=== PATIENT | female | born 1960 | race Caucasian/White ===

== ENCOUNTER 2019-05-31 22:33 | Emergency (ER) | payer BC, SELFPAY ==
[2019-05-31 22:37] VITALS: BP 139/109; PULSE 82; RESP 14; TEMP 36.6; O2SAT 99
--- NOTE | 2019-05-31 22:50 | ED.EYEPROB ---
HPI - Eye Problem General Chief complaint: Eye Problems Stated complaint: torn cornea Time Seen by Provider: 05/31/19 22:39 Source: patient and family Mode of arrival: ambulatory Limitations: no limitations History of Present Illness HPI Narrative: Patient is a 59-year-old female who presents for evaluation of right eye irritation. Patient states she was cleaning in her basement this evening, there was a lot of dust in the air, she felt some irritation in her right eye and rubbed her eye with immediate pain. She reported some swelling and feeling as if she tore part of her eye. She denies any bleeding. No redness. No white discharge. There is minimal tearing in the right eye and mild pain. Patient does not wear contact lenses. She is not up-to-date on her tetanus. Patient reports blurry vision without her corrective lenses. Otherwise with her lenses, no visual impairment. No current foreign body sensation. Related Data Allergies Allergy/AdvReac Type Severity Reaction Status Date / Time No Known Allergies Allergy Verified 05/31/19 22:47 Review of Systems Review of Systems: Narrative: CONSTITUTIONAL: Denies fever EYES: No current blurry vision, minimal right eye pain, tearing, no discharge ENT: Denies rhinorrhea, congestion, sore throat, or otalgia. PMFSH Past Medical History Medical History (Updated 05/31/19 @ 23:14 by Jeannine Ruiz MD) No pertinent past medical history Surgical History Surgical History (Updated 05/31/19 @ 23:14 by Jeannine Ruiz MD) Hx of shoulder surgery Family History Family History Father Hypertension Malignant neoplasm of prostate Family history of type 2 diabetes mellitus Mother Family history of Alzheimer's disease Family history of malignant neoplasm of cervix Patient's mother is in good health Family history of dementia Social History Social History Smoking status: Former smoker Alcohol intake: current Exam Narrative: Exam Narrative: GENERAL: Awake, alert, conversant HEAD: Normocephalic, atraumatic. EYES: 2+ PERRLA and EOMI. mild right conjunctival erythema. Chemosis present. No subconjunctival hemorrhage. No purulent discharge. No eye lid edema. ENT: Nares clear, no rhinorrhea or epistaxis. Mucous membranes moist. NECK: Supple. CHEST: No respiratory distress, breathing even and non labored HEART: Regular rate, sinus rhythm ABDOMEN:Non distended, non tender EXTREMITIES: Normal range of motion. No edema. SKIN: Warm, dry, no rash. NEURO:No focal deficits. Alert and oriented x3 Course Course Emergency Course: Patient presented for evaluation of right eye irritation. At the time of assessment, vital signs are stable and ABCs are intact. Eye exam is notable for chemosis, fluorescein stain shows no Freddy sign, patient does have a corneal abrasion. We will update the patient's tetanus. She will be given erythromycin eye ointment and ophthalmology follow-up. No severe visual impairment with corrective lenses at this time. No sign of cellulitis. No sign of foreign body. Patient was then discharged home. Vital Signs Vital signs: Vital Signs Temperature 36.6 C 05/31/19 22:37 Pulse Rate 82 05/31/19 22:37 Respiratory Rate 14 05/31/19 22:37 Blood Pressure 139/109 H 05/31/19 22:37 Pulse Oximetry 99 05/31/19 22:37 Temperature 36.6 C 05/31/19 22:37 Pulse Rate 82 05/31/19 22:37 Respiratory Rate 14 05/31/19 22:37 Blood Pressure 139/109 H 05/31/19 22:37 Pulse Oximetry 99 05/31/19 22:37 Discharge Plan Discharge Clinical Impression: Corneal abrasion Qualifiers: Encounter type: initial encounter Laterality: right Qualified Code(s): S05.01XA - Injury of conjunctiva and corneal abrasion without foreign body, right eye, initial encounter Chemosis Qualifiers: Laterality: right Qualified Code(s): H11.421 - Conjunc
[2019-05-31] MEDS: TETANUS,DIPHTHERIA,AC PERTUSSIS ADULT (0.5 ML) BOOSTRIX IM (23:19)
== END 2019-05-31 23:25 | disposition home or self-care (01) ==
PROVIDERS: Emergency Provider Emergency Medicine; PCP Family Medicine
DX: S05.01XA Injury of conjunctiva and corneal abrasion without foreign body, right eye, initial encounter (principal); H11.421 Conjunctival edema, right eye; Z87.891 Personal history of nicotine dependence; Z23 Encounter for immunization; X58.XXXA Exposure to other specified factors, initial encounter
CPT/HCPCS: 90471; 90715; 99283; A9270

== ENCOUNTER 2019-07-05 07:30 | Outpatient (CLI) | payer BC, SELFPAY ==
--- NOTE | ~2019-07-05 | MM_ITS ---
EXAMINATION: MM screening [facility] BI w [place] HISTORY: Screening mammogram TECHNIQUE: Craniocaudal and mediolateral oblique 3-D tomosynthesis images were obtained and synthetic 2-D images were generated. CAD analysis was submitted and interpreted. COMPARISON: 06/12/2018, 05/20/2017, 03/20/2016 bilateral digital screening mammogram examinations BREAST PARENCHYMAL COMPOSITION: There are scattered areas of fibroglandular density. FINDINGS: There is no evidence of suspicious mass, calcification, or architectural distortion to sugg est malignancy in either breast. There has been no suspicious interval change. IMPRESSION: 1. No mammographic evidence of malignancy. 2. Recommend routine screening mammography in one year. BI-RADS Category 1: Negative Reviewed, dictated and finalized at location A.
--- NOTE | ~2019-07-05 | DEXA_ITS ---
Bone Density Report Name: Cyndy Sagastume Age: 59 Sex: Female Ethnicity: White Date of : 1960 Indication: postmenopausal; Referring Provider: Singh, Linn Study: Bone densitometry was performed. Exam Date: July 05, 2019 Accession number: [id number] Bone Density: Region BMD T-score Z-score Classification AP Spine (L1-L4) 1.060 0.1 1.4 Normal Femoral Neck (Left) 0.824 -0.2 0.9 Normal Total Hip (Left) 1.077 1.1 1.9 Normal Total Hip Bilateral Avg 1.084 1.2 2.0 Normal Femoral Neck (Right) 0.832 -0.2 1.0 Normal Total Hip (Right) 1.090 1.2 2.0 Normal World Health Organization criteria for BMD impression classify patients as: Normal (T-score at or above -1.0), Osteopenia (T-score between -1.0 and -2.5), or Osteoporosis (T-score at or below -2.5). 10-year Fracture Risk: FRAX not reported because: All T-scores for Spine Total, Hip Total, Femoral Neck at or above -1.0 Clinical Information Provided by Patient: Patient maximum height was 65 Menopause Age: 55 No regular weight bearing exercise Drinks caffeinated beverages Onset of menses at age 16 Number of children 3 Impression: The patient has normal bone mass. Discussion: BONE DENSITY IS ABOVE THE MINIMUM DESIRABLE LEVEL AT ALL SKELETAL SITES TESTED. This patient?s bone mineral density is above the minimum desirable level (T-score -1.0 or better) at all sites measured. The patient should follow a healthful lifestyle (good nutrition with adequate calcium and vitamin D, and appropriate weight-bearing exercise). Follow-Up: Consider repeating this study in 5 years or sooner if there is some new clinical indication. Reported by: JENI on 07/05/2019 8:09:00 AM. Reviewed, dictated and finalized at location A. [facility]
== END 2019-07-05 07:31 | disposition home or self-care (01) ==
PROVIDERS: PCP Family Medicine; Visit Provider Nurse Practitioner
DX: Z12.31 Encounter for screening mammogram for malignant neoplasm of breast (principal); Z13.820 Encounter for screening for osteoporosis; Z78.0 Asymptomatic menopausal state
CPT/HCPCS: 77063; 77067; 77080

== ENCOUNTER 2020-02-26 09:34 | Outpatient (CLI) | payer BC, SELFPAY ==
--- NOTE | 2020-02-26 10:14 | EST_ITS ---
Patient Info Name: Cyndy Sagastume Age: 60 years : 1960 Gender: Female Ht: 65 in Wt: 200 lbs BSA: 2.07 m2 Exam Date: 02/26/2020 10:20 AM Exam Location: [facility] Stress Patient Status: Outpatient Admit Date: 02/26/2020 Staff Ordering Physician: Laura Huffman Attending Provider: Laura Huffman Exercise Technologist: Melita Arrieta RDCS Exercise Physician: Sumit Muñoz DO Exam Type: CA stress test treadmill Study Info Indications I10 - Essential (primary) hypertension R07.89 - Other chest pain A treadmill exercise stress test was performed. Summary 1. 1. Negative Shaun exercise stress test for ischemic ST changes by ECG criteria. 2. 2. Mildly reduced functional capacity, achieving 7 METs of workload. 3. 3. Baseline hypertension with hypertensive response to exercise. 4. 4. Appropriate HR response to exercise. 5. 5. Appropriate HR recovery at 1 minute post exercise. 6. 6. No imaging with stress testing. 7. 7. Patient informed of the above results. Protocol: Shaun Stress ECG Details Stage: REST Duration (min): 7 min : 44 sec Speed (mph): 0.0 Grade (%): 0 HR (bpm): 72 SBP (mmHg): 143 DBP (mmHg): 94 METS: --- Stage: REST Duration (min): 10 min : 42 sec Speed (mph): 0.0 Grade (%): 0 HR (bpm): 72 SBP (mmHg): 143 DBP (mmHg): 94 METS: --- Stage: STAGE 1 Duration (min): 1 min : 0 sec Speed (mph): 1.7 Grade (%): 10 HR (bpm): 99 SBP (mmHg): 143 DBP (mmHg): 94 METS: --- Stage: STAGE 1 Duration (min): 2 min : 0 sec Speed (mph): 1.7 Grade (%): 10 HR (bpm): 110 SBP (mmHg): 143 DBP (mmHg): 94 METS: --- Stage: STAGE 1 Duration (min): 3 min : 0 sec Speed (mph): 1.7 Grade (%): 10 HR (bpm): 109 SBP (mmHg): 192 DBP (mmHg): 90 METS: --- Stage: STAGE 2 Duration (min): 1 min : 0 sec Speed (mph): 2.5 Grade (%): 12 HR (bpm): 122 SBP (mmHg): 192 DBP (mmHg): 90 METS: --- Stage: STAGE 2 Duration (min): 2 min : 0 sec Speed (mph): 2.5 Grade (%): 12 HR (bpm): 138 SBP (mmHg): 210 DBP (mmHg): 99 METS: --- Stage: STAGE 1 Duration (min): 3 min : 0 sec Speed (mph): 1.7 Grade (%): 10 HR (bpm): 109 SBP (mmHg): 192 DBP (mmHg): 90 METS: --- Stage: STAGE 2 Duration (min): 3 min : 0 sec Speed (mph): 2.5 Grade (%): 12 HR (bpm): 142 SBP (mmHg): 210 DBP (mmHg): 99 METS: --- Stage: RECOVERY Duration (min): 1 min : 0 sec Speed (mph): 0.0 Grade (%): 0 HR (bpm): 123 SBP (mmHg): 236 DBP (mmHg): 97 METS: --- Stage: RECOVERY Duration (min): 1 min : 59 sec Speed (mph): 0.0 Grade (%): 0 HR (bpm): 103 SBP (mmHg): 236 DBP (mmHg): 97 METS: --- Stage: RECOVERY Duration (min): 3 min : 0 sec Speed (mph): 0.0 Grade (%): 0 HR (bpm): 95 SBP (mmHg): 190 DBP (mmHg): 90 MET
== END 2020-02-26 09:35 | disposition home or self-care (01) ==
PROVIDERS: PCP Family Medicine; Visit Provider Physician Assistant Medical
DX: I10 Essential (primary) hypertension (principal); R07.89 Other chest pain
CPT/HCPCS: 93017

== ENCOUNTER → 2020-09-27 07:50 | Outpatient (CLI) | payer BC, SELFPAY ==
--- NOTE | ~2020-09-27 | MM_ITS ---
EXAMINATION: MM screening [facility] BI w [place] HISTORY: Screening mammogram TECHNIQUE: Craniocaudal and mediolateral oblique 3-D tomosynthesis images were obtained and synthetic 2-D images were generated. CAD analysis was submitted and interpreted. COMPARISON: 07/05/2019, 06/12/2018, 05/20/2017 BREAST PARENCHYMAL COMPOSITION: There are scattered areas of fibroglandular density. FINDINGS: There is no evidence of suspicious mass, calcification, or architectural distortion to sugg est malignancy in either breast. There has been no suspicious interval change. IMPRESSION: 1. No mammographic evidence of malignancy. 2. Recommend routine screening mammography in one year. BI-RADS Category 1: Negative Reviewed, dictated and finalized at location A.
== END ==
PROVIDERS: Visit Provider Nurse Practitioner
DX: Z12.31 Encounter for screening mammogram for malignant neoplasm of breast (principal)
CPT/HCPCS: 77063; 77067

== ENCOUNTER 2021-02-10 07:48 | Outpatient (CLI) | payer BC, SELFPAY ==
--- NOTE | 2021-02-10 08:55 | ECG_ITS ---
Measurements Intervals [place] Rate: 56 P: 55 UT: 159 QRS: 28 QRSD: 90 T: 29 QT: 406 QTc: 394 Interpretive Statements SINUS BRADYCARDIA CANNOT RULE OUT SEPTAL INFARCT, AGE INDETERMINATE BASELINE ARTIFACT- I, III, AVR, AVL, AVF, V1-V3 ABNORMAL ECG Electronically Signed On 02-11-2021 9:56:41 [employer] SALES REPRESENTATIVE by Sumit Muñoz D.O.
== END 2021-02-10 07:49 | disposition home or self-care (01) ==
LOC: ANHSURGERY 07:53
PROVIDERS: PCP Family Medicine; Visit Provider Surgery Plastic and Reconstructive Surgery
DX: I10 Essential (primary) hypertension (principal); Z01.818 Encounter for other preprocedural examination; R94.31 Abnormal electrocardiogram [ECG] [EKG]
CPT/HCPCS: 93005

== ENCOUNTER 2021-02-17 01:20 | Day surgery (SDC) | payer OTHER, SELFPAY ==
[2021-02-04 16:01] VITALS: BMI 24.3
--- NOTE | 2021-02-04 16:03 | SUR.PREOP ---
Report to the Outpatient Waiting Room, entrance under the green pavilion located off [facility], at time 0630_ on date 02/17/21 . OR Time: __0830 . - You and your visitor will be asked a series of questions to screen for COVID 19 for your protection. - A mask is required within the hospital. - Only one visitor is allowed at this time. Patient visitors will be guided where to wait when not with patient. Preoperative COVID Testing Requirements: No COVID Test needed if: (proof is required; if not received patient will have Rapid Test prior to entry) - Patient has received COVID Vaccine at least 14 days prior to procedure date or - Patient has positive COVID test result within last 90 days of surgery date. COVID Test needed if above criteria is not met If not COVID vaccinated a COVID test must be conducted within 72 hours of surgery and patient is asked to isolate self from time of testing until procedure. You will go to the [facility] for your COVID testing. The [facility] site is located at the corner of [address] [facility]. You will only be called if COVID results are positive and your surgeon may reschedule your elective surgery date. Patients may have clear liquids (water, carbonated beverages, clear teas, apple juice) until 3 hours prior to surgery with a maximum of 20 ounces. - No food from midnight until time of surgery - Infants may have breast milk until 4 hours before surgery, formula 6 hours prior to surgery. - Children will be allowed to drink immediately following surgery. If applicable, please bring a bottle or sippy cup to assist with drinking. Juice, water, soda, and popsicles are readily available. For infants on formula, please bring formula the day of surgery. Pacifiers are allowed. Take the following medications with a SIP of water the morning of surgery: N/A Medications to discontinue per physician _vitamin supplements Date to take last dose__02/14/21 Please no make-up, nail urdu, hairspray, perfume, deodorant, or body powder the day of surgery. No jewelry (including any body piercings) or valuables the day of surgery, leave them at home. Please take a shower or bath the night before, or the morning of, surgery with an antibacterial soap. Wear comfortable, loose fitting clothing. Children are encouraged to wear pajamas. - Jewelry must be removed prior to entering the operating room. Rings and piercings that are not removed may be cut off. - The hospital will not accept responsibility for valuables. - Please leave all valuables, including medications, at home the day of surgery. require urine sample day of surgery If you are going home after surgery, a licensed test car driver must drive you home. - NO public transportation without another adult. - We recommend that an adult stay with you for 24 hours following discharge. - We also recommend that you do not drive, make important decision, drink alcoholic beverages, or take any drugs that were not prescribed by your health care provider for at least 24 hours after your discharge time. For Pediatric surgeries, we recommend two adults accompany the child home (only one inside the building at this time). Follow any additional instructions given to you from your surgeon. Telephone instructions given to _miriam mcclelland and asked if any additional questions and then verbalized understanding. Patient advised to call surgeon office or pre surgery nurse liaison [phone] if any additional questions.
[2021-02-17] VITALS (13 sets, daily range): BP systolic 131–178; BP diastolic 69–85; PULSE 56–73; RESP 12–20; TEMP 36.2–36.4; O2SAT 98–100
--- NOTE | 2021-02-17 06:50 | WPDHPUPDATE1 ---
History and Physical Update Update Date/Time: 02/17/21 06:50 History and Physical has been reviewed, including an updated exam of the patient. There are NO changes in the patient's condition. Risks, benefits, and alternatives have been discussed and questions answered. Patient agrees to proceed with procedure.
[2021-02-17] MEDS: LACTATED RINGERS 1,000 ML 30 ML IV CONT ×3 (07:10→14:00)
[2021-02-17 07:22] LABS: Urine Cotinine NEGATIVE
--- NOTE | 2021-02-17 08:03 | WPDANESEPPF ---
Anes - Initial Pre Proc Eval Procedure: Operation Date: 02/17/21 08:30 Proposed Procedures p Bilateral Breast Mastopexy with Galaflex - Eile Mirza MD Date/Time: 02/17/21 08:03 Surgeon: Elie Mirza MD Pre Op Diagnosis: Bilateral Breast Ptosis Patient Data Age: 61 Gender: F Height: 1.65 m Weight: 67.45 kg Last Vital Signs Temp 36.2 C L 02/17/21 06:42 Pulse 63 02/17/21 06:42 Resp 20 02/17/21 06:42 BP 136/74 02/17/21 06:42 Pulse Ox 100 02/17/21 06:42 Allergies Allergy/AdvReac Type Severity Reaction Status Date / Time No Known Allergies Allergy Verified 02/17/21 06:45 Home Medications Medication Instructions Recorded Confirmed Type lisinopril 20 1 tablet PO DAILY #90 tablet 03/03/20 02/17/21 Rx mg-hydrochlorothiazide 12.5 mg tablet rosuvastatin 20 mg tablet 20 mg PO DAILY #90 tablet 03/03/20 02/17/21 Rx cholecalciferol (vitamin D3) 1 tablet PO .every other day 01/21/21 02/17/21 History glucosamine-chondroitin 250 mg-200 2 tablet PO .qd tablet 01/21/21 02/17/21 History mg tablet ssrkixtwayfg-lzpnhhlj-xcblsu 1 tablet PO .QD 01/21/21 02/17/21 History [Centrum Silver] biotin 5 mg PO DAILY 02/04/21 02/17/21 History docusate sodium 100 mg capsule 100 mg PO DAILY #14 cap 02/11/21 Rx ondansetron HCl 4 mg tablet 4 mg PO Q8H #21 tablet 02/11/21 Rx oxycodone-acetaminophen 5 mg-325 1 tablet PO Q6H PRN #30 tablet 02/13/21 02/13/21 Rx mg tablet Laboratory Tests 02/17/21 06:40 Cotinine Negative Patient hx anesthesia problems: post op nausea/vomiting Family hx anesthesia problems: none Results Review: All pre-operative results and documents have been reviewed as part of the pre-operative evaluation. [facility] Past Medical History Medical History BMI 25.0-25.9,adult BMI 32.0-32.9,adult Hypertension Mixed hyperlipidemia Surgical History Surgical History History of elbow surgery History of mandibular surgery Hx of shoulder surgery Family History Family History Father Hypertension Malignant neoplasm of prostate Family history of type 2 diabetes mellitus Mother Family history of Alzheimer's disease Family history of malignant neoplasm of cervix Patient's mother is in good health Family history of dementia Sibling COPD (chronic obstructive pulmonary disease) Tobacco abuse Social History Social History Smoking status: Unknown if ever smoked Second hand tobacco smoke exposure: Yes Smoking end date: 02/15/88 Additional smoking assessment comments: 1/2 ppd [id number] Alcohol intake: current Substance use: never Substance use type: does not use Living arrangements: with family 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 Informed Consent: The patient's anesthetic plan and its attendant risks and benefits were discussed with the patient/family/POA. Questions were solicited and answers provided to the satisfaction of the patient/family/POA.
[2021-02-17] MEDS: LACTATED RINGERS IRRIG 1,000 ML, LIDOCAINE HCL 1% LOCAL INJ 50 ML, EPINEPHrine HCL INJ ... INFILTRATE (08:32)
[2021-02-17] MEDS: ceFAZolin 2 GM/D5W 50 ML 2 GM/50 ML BAG IVPB (08:32)
[2021-02-17] MEDS: TRANEXAMIC ACID 1,000MG/ISO100 1,000 MG/100 ML BAG 200 MG IVPB (08:35)
--- NOTE | 2021-02-17 10:59 | P.OP_ITS ---
Procedure Note - Detailed Date of Procedure 02/17/21 Pre-op Diagnosis Bilateral Breast Ptosis Post-op Diagnosis same Procedure Performed Bilateral mastopexy with Galaflex Surgeon Elie Mirza MD Anesthesia general Findings Inverted T Superior medial pedicle Galaflex REF# [id number] Lot [id number] Exp 11/13/2022 Description of Procedure Preoperatively the risks, benefits, alternatives were discussed in extensive detail. I want her to be very realistic about the risks involved as well as expectations. Made sure answered all of her questions to her satisfaction. Consent obtained. Patient was marked in the preoperative holding area with her verification. She was taken to the operating room placed supine on the operating room table. Anesthesia provided by anesthesiology and prepped and draped in a standard sterile fashion. I tailor tacked into position to verified my markings. Placed her in a sitting position to verify and marked out the nipple-areolar complex at 38 mm. She was placed supine. I made stab incision in tumesced with a low volume tumescent solution. I de-epithelialized a superior medial pedicle bilateral. I then elevated medial and lateral flaps and created an auto augmentation flap based on the intercostal inferiorly. That was completely de-epithelialized. I then inset that deep to the breast tissue and sutured to the chest wall using 2- 0 PDS. Galaflex was soaked on the back table in antibiotic solution. He was in trimmed as necessary and sutured into place with 2-0 Vicryl along the inferior aspect of bilateral breast. I then tailor tacked into position. I closed along the IMF with 2-0 Stratafix. I closed along the IMF then with 3-0 Stratafix. Vertical was closed with 2-0 PDS and 3-0 Monocryl. Around the areola with 3-0 strata fix. All the incisions were closed using running subcuticular 4-0 Monocryl followed by Steri-Strips. She was woken taken the PACU without difficulty. All instrument sponge counts were correct at the end of the case. Estimated Blood Loss 30 Drains No Packing No Pathology none sent Complications No immediate complications Condition stable Disposition PACU
[2021-02-17] MEDS: fentaNYL CITRATE INJ (*CRX) 100 MCG/2 ML VIAL 25 MCG IV PUSH ×2 (11:26→12:01)
[2021-02-17] MEDS: ONDANSETRON INJ 4 MG/2 ML VIAL IV PUSH (11:54)
[2021-02-17] MEDS: diphenhydrAMINE HCl INJ 50 MG/ML VIAL 25 MG IV PUSH (12:30)
[2021-02-17] MEDS: PROMETHAZINE HCL 25 MG/ML AMPUL 12.5 MG IV PUSH (13:05)
[2021-02-17] MEDS: HALOPERIDOL LACTATE 5 MG/ML VIAL 1 MG IV PUSH (14:12)
[2021-02-17] MEDS: PROCHLORPERAZINE EDISYLATE 10 MG/2 ML VIAL IV PUSH (14:44)
--- NOTE | 2021-02-17 15:46 | SUR.PHASEII ---
NAUSEA GONE SINCE COMPAZINE GIVEN. STATES SHE CAN GO HOME WITH ASSISTANCE FROM HER .
== END 2021-02-17 15:54 | disposition home or self-care (01) ==
PROVIDERS: PCP Family Medicine; Visit Provider Surgery Plastic and Reconstructive Surgery
PROC: (CPT 19316; principal; 2021-02-17 08:30)
DX: Z41.1 Encounter for cosmetic surgery (principal); N64.81 Ptosis of breast; I10 Essential (primary) hypertension; E78.2 Mixed hyperlipidemia; Z87.891 Personal history of nicotine dependence
CPT/HCPCS: 19316; 15777 ×2; 80307; J0171; J0690; J0780; J1100; J1170; J1200; J1580; J1630; J2250; J2405; J2550; J2704; J3010; J7120

== ENCOUNTER → 2021-10-20 12:06 | Outpatient (CLI) | payer BC, SELFPAY ==
--- NOTE | ~2021-10-20 | MM_ITS ---
EXAMINATION: MM screening [facility] BI w [place] HISTORY: Screening mammogram TECHNIQUE: Craniocaudal and mediolateral oblique 3-D tomosynthesis images were obtained and synthetic 2-D images were generated. CAD analysis was submitted and interpreted. COMPARISON: 09/27/2020, 07/05/2019, 06/12/2018 bilateral screening mammogram examinations BREAST PARENCHYMAL COMPOSITION: The breasts are heterogeneously dense, which may obscure small masses . FINDINGS: Interval bilateral reduction in breast size post bilateral reduction mammoplasty on February 17, 2021. There is no evidence of suspicious mass, calcification, or architectural distortion to sugg est malignancy in either breast. There has been no suspicious interval change. IMPRESSION: 1. No mammographic evidence of malignancy. 2. Recommend routine screening mammography in one year. BI-RADS Category 2: Benign finding(s). Reviewed, dictated and finalized at location A.
== END ==
PROVIDERS: PCP Family Medicine; Visit Provider Nurse Practitioner
DX: Z12.31 Encounter for screening mammogram for malignant neoplasm of breast (principal)
CPT/HCPCS: 77063; 77067

== ENCOUNTER 2021-11-23 08:54 | Outpatient (CLI) | payer BC, SELFPAY ==
--- NOTE | 2021-11-23 09:03 | ECG_ITS ---
Measurements Intervals [place] Rate: 54 P: 62 [place]: 166 QRS: 29 QRSD: 88 T: 34 QT: 420 QTc: 401 Interpretive Statements SINUS BRADYCARDIA COMPARED TO ECG 02/10/2021 08:23:14 NO SIGNIFICANT CHANGES Electronically Signed On 11-24-2021 13:02:45 CDT by Lizzie Collier M.D.
== END 2021-11-23 08:55 | disposition home or self-care (01) ==
LOC: ANHLAB 08:56 → ANHCARD 09:01
PROVIDERS: PCP Family Medicine; Visit Provider Physician Assistant Medical
DX: Z01.818 Encounter for other preprocedural examination (principal); R94.31 Abnormal electrocardiogram [ECG] [EKG]
CPT/HCPCS: 93005

== ENCOUNTER → 2022-10-21 07:15 | Outpatient (CLI) | payer BC, SELFPAY ==
--- NOTE | ~2022-10-21 | MM_ITS ---
EXAMINATION: MM screening [facility] BI w [place] HISTORY: Screening mammogram TECHNIQUE: Craniocaudal and mediolateral oblique 3-D tomosynthesis images were obtained and synthetic 2-D images were generated. CAD analysis was submitted and interpreted. COMPARISON: 10/20/2021, 09/27/2020 bilateral screening mammogram examinations BREAST PARENCHYMAL COMPOSITION: There are scattered areas of fibroglandular density. FINDINGS: Stable architectural distortions and diminished size of the breasts since 09/27/2020 consist ent with postsurgical change. There is no evidence of suspicious mass, calcification, or new architec tural distortion to suggest malignancy in either breast. There has been no suspicious interval change . IMPRESSION: 1. No mammographic evidence of malignancy. 2. Recommend routine screening mammography in one year. BI-RADS Category 2: Benign finding(s). Reviewed, dictated and finalized at location A.
== END ==
PROVIDERS: PCP Nurse Practitioner; Visit Provider Nurse Practitioner
DX: Z12.31 Encounter for screening mammogram for malignant neoplasm of breast (principal)
CPT/HCPCS: 77063; 77067

== ENCOUNTER → 2022-12-22 10:44 | Outpatient (CLI) | payer BC, SELFPAY ==
--- NOTE | ~2022-12-22 | XR_ITS ---
EXAMINATION: XR lumbar spine 2-3V DATE: 12/22/2022 10:59 INDICATION: Low back pain, unspecified. TECHNIQUE: 3 views of lumbar spine including standing views were obtained. COMPARISON: None. FINDINGS: There is 9 degrees dextrocurvature of thoracolumbar spine. Vertebral body heights are hawk l. There is moderately decreased disc height at L1-L2 and mildly decreased disc height at L3-L4. Ther e is multilevel mild facet joint osteoarthritis. There is moderate to severe facet joint osteoarthrit is at L5-S1. IMPRESSION: 1. Moderate lumbar spondylosis. Reviewed, dictated and finalized at location E. M [facility]
== END ==
PROVIDERS: PCP Family Medicine; Visit Provider Nurse Practitioner Family
DX: M43.06 Spondylolysis, lumbar region (principal)
CPT/HCPCS: 72100

== ENCOUNTER 2023-02-20 10:14 | Emergency (ER) | payer BC, SELFPAY ==
--- NOTE | ~2023-02-20 | CT_ITS ---
EXAMINATION: CT orbit BI w con DATE: 02/20/2023 13:14 INDICATION: Left eye erythema and drainage TECHNIQUE: Computed tomography (CT) of the orbits was performed 75 cc of Omnipaque 350 intravenous co ntrast. The dose-length product (DLP) was 169.74 mGy-cm. Automated exposure control and iterative rec onstruction technique were employed. COMPARISON: None. FINDINGS: There is periorbital and preseptal cellulitis of the left eye. No intraconal inflammatory c hange is identified. The right globe is normal. There appears to be mild enhancement anteriorly in th e left eye involving the cornea, pupil, or iris. No fluid collection is identified. There is moderate opacification of the right maxillary sinus and minimal opacification of the left maxillary sinus. Th e osseous structures are unremarkable. IMPRESSION: 1. Periorbital and preseptal cellulitis of the left eye without evidence of abscess. Apparent inflamm atory change of the anterior structures of the left eye. Reviewed, dictated and finalized at location [facility] IMPRESSION: 1. Periorbital and preseptal cellulitis of the left eye without evidence of abs cess. Apparent inflammatory change of the anterior structures of the left eye.
[2023-02-20 10:28] VITALS: BP 132/86; PULSE 82; RESP 18; TEMP 37; O2SAT 100
--- NOTE | 2023-02-20 11:06 | ED.EYEPROB ---
HPI - Eye Problem General Chief complaint: Eye Problems <Monie Peoples PA-C - Last Filed: 02/20/23 16:19> Stated complaint: left eye redness and swelling <SEGUNDO Leonard Last Filed: 02/20/23 16:19> Time Seen by Provider: 02/20/23 10:56 <SEGUNDO Leonard Last Filed: 02/20/23 16:19> Source: patient <SEGUNDO Leonard Last Filed: 02/20/23 16:19> Mode of arrival: ambulatory <SEGUNDO Leonard Last Filed: 02/20/23 16:19> Limitations: no limitations <SEGUNDO Leonard Last Filed: 02/20/23 16:19> History of Present Illness HPI Narrative: This is a 63 year old female that presents to the ER for left eye redness and discharge. Ongoing since yesterday. Reports swelling of the eyelids as well. No known injuries. Reports her grandson has had similar symptoms and was diagnosed with pink eye. She wears glasses, no contacts. She was started on erythromycin ointment by her PCP yesterday. Denies vision changes. <Monie Peoples PA-C - Last Filed: 02/20/23 16:19> Related Data Home medications: Home Medications Medication Instructions Recorded Confirmed cholecalciferol (vitamin D3) 1 tablet PO .every other day 01/21/21 12/22/22 glucosamine-chondroitin 250 mg-200 2 tablet PO .qd 01/21/21 12/22/22 mg tablet (Osteo Bi-Flex) bdlxlgmbyvfa-jvcingda-grxsui 1 tablet PO .QD 01/21/21 12/22/22 [Centrum Silver] biotin 5 mg capsule 5 mg PO DAILY 02/04/21 12/22/22 thiamine HCl (vitamin B1) 250 mg 250 mg PO DAILY 12/22/22 12/22/22 tablet (Vitamin B-1) <SEGUNDO Leonard Last Filed: 02/20/23 16:19> Allergies/adverse reactions: Allergies Allergy/AdvReac Type Severity Reaction Status Date / Time No Known Allergies Allergy Verified 02/20/23 10:14 <Monie Peoples PA-C - Last Filed: 02/20/23 16:19> Review of Systems Review of Systems: CONSTITUTIONAL: Denies fever EYES: Reports redness, and discharge. Denies visual changes <Monie Peoples PA-C - Last Filed: 02/20/23 16:19> All systems reviewed & are unremarkable except as noted in HPI and below <Monie Peoples PA-C - Last Filed: 02/20/23 16:19> [facility] Past Medical History Medical History: Medical History BMI 25.0-25.9,adult BMI 32.0-32.9,adult Hypertension Mixed hyperlipidemia <SEGUNDO Leonard Last Filed: 02/20/23 16:19> Surgical History Surgical History: Surgical History History of elbow surgery History of mandibular surgery Hx of shoulder surgery <Monie Peoples PA-C - Last Filed: 02/20/23 16:19> Family History Family History: Family History Father Hypertension Malignant neoplasm of prostate Family history of type 2 diabetes mellitus Mother Family history of Alzheimer's disease Family history of malignant neoplasm of cervix Patient's mother is in good health Family history of dementia Sibling COPD (chronic obstructive pulmonary disease) Tobacco abuse <Monie Peoples PA-C - Last Filed: 02/20/23 16:19> Social History Social History: Social History Smoking status: Never smoker Second hand tobacco smoke exposure: Yes Smoking end date: 02/15/88 Additional smoking assessment comments: 1/2 ppd [id number] Alcohol intake: current Substance use: never Substance use type: does not use Living arrangements: with family Occupation/Education: occupation 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 HEAD: Normocephalic, atraumatic. EYES:
[2023-02-20 11:27] LABS: Basophils Percent Auto 0.4 % (0.2-1.2); Eosinophils Absolute Auto 0.1 K/mm3 (0-0.3); Eosinophils Percent Auto 1.2 % (0-4.4); Hematocrit 42.7 % (37.0-47.0); Hemoglobin 13.4 g/dL (12.0-15.0); Immature Granulocyte Absolute 0.01 K/mm3 (0.00-0.031); Immature Granulocyte Percent A 0.1 % (0-0.5); Lymphocytes Absolute Auto 1.45 K/mm3 (0.9-3.2); Lymphocytes Percent Auto 21.2 % (18.3-44.2); Mean Corpuscular HGB Conc 31.4 g/dl (32-36); Mean Corpuscular Hemoglobin 29.8 pg (26-34); Mean Corpuscular Volume 94.9 fl (80-100); Mean Platelet Volume 11.3 fl (7.4-10.4); Monocytes Absolute Auto 0.7 K/mm3 (0.1-0.6); Monocytes Percent Auto 10.7 % (2.6-8.5); Neutrophils Absolute Auto 4.5 K/mm3 (1.3-6.7); Neutrophils Percent Auto 66.4 % (45.5-73.1); Platelet Count Result 205 k/mm3 (150-375); Red Cell Distribution Width 13.3 % (11.5-14.5); White Blood Count 6.8 K/mm3 (4.5-10.0)
[2023-02-20 11:33] LABS: Anion Gap 10 mmol/L (8-16); Blood Urea Nitrogen 17 mg/dL (7-17); Calcium 9.6 mg/dL (8.4-10.2); Carbon Dioxide 29 mmol/L (22-30); Chloride 103 mmol/L (98-107); Estimated CRCL calculation 100 ml/min; Estimated Glomerular Filt Rate > 60; Glucose 94 mg/dL (65-110); Sodium 142 mmol/L (137-145)
[2023-02-20] MEDS: cefTRIAXone 2 GM/NS 100 ML 2 GM/100 ML BAG IVPB (15:14)
[2023-02-20] MEDS: VANCOMYCIN 2,000 MG/NS 500 ML 2,000 MG/500 ML BAG 250 MG IVPB (15:55)
[2023-02-20] MEDS: diphenhydrAMINE HCl INJ 50 MG/ML VIAL 25 MG IV PUSH (16:32)
[2023-02-20 16:34] VITALS: BP 119/73; PULSE 67; RESP 15; TEMP 36.8; O2SAT 100
== END 2023-02-20 16:35 | disposition short-term general hospital (02) ==
PROVIDERS: Emergency Provider Physician Assistant; PCP Family Medicine
DX: H05.012 Cellulitis of left orbit (principal); I10 Essential (primary) hypertension; E78.5 Hyperlipidemia, unspecified; Z87.891 Personal history of nicotine dependence
CPT/HCPCS: 36415; 70481; 80048; 85025; 87040; 96365; 96367; 96375; 99285; J0696; J1200; J3370; Q9967

== ENCOUNTER → 2023-02-25 12:39 | Outpatient (CLI) | payer BC, SELFPAY ==
--- NOTE | ~2023-02-25 | MR_ITS ---
MRI of the lumbar spine Clinical History: Back pain Technique: Axial T2-weighted images, and sagittal T1-weighted, T2-weighted, and and T2 fat-sat images were acquired. Findings: There is no fracture or subluxation of the lumbar spine. Vertebral bodies maintain normal h eight and alignment. No suspicious bone marrow signal abnormality seen. At L1-L2, there is moderate degenerative disc narrowing. There is no significant disc bulge or hernia tion. There is mild facet arthropathy. No central canal stenosis or neural foraminal narrowing. At L2-L3, there is no disc bulge or herniation. There is minimal facet arthropathy. No central canal stenosis or neural foraminal narrowing. At L3-L4, there is minimal disc bulge. There is mild facet arthropathy. No central canal stenosis or neural foraminal narrowing. At L4-L5, there is minimal disc bulge. There is mild facet arthropathy. No central canal stenosis or neural foraminal narrowing. At L5-S1, there is minimal disc bulge with mild to moderate facet arthropathy. Tiny annular tear pres ent No central canal stenosis. There is mild bilateral neural foraminal narrowing. Paravertebral soft tissues are unremarkable. Impression: Very mild degenerative spondylosis, as above. Reviewed, dictated and finalized at [facility]. [facility] Impression: Very mild degenerative spondylosis, as above.
== END ==
PROVIDERS: PCP Nurse Practitioner Family; Visit Provider Nurse Practitioner Family
DX: M54.50 Low back pain, unspecified (principal); M47.896 Other spondylosis, lumbar region
CPT/HCPCS: 72148

== ENCOUNTER 2023-11-17 09:46 | Outpatient (CLI) | payer BC, SELFPAY ==
--- NOTE | ~2023-11-17 | US_ITS ---
Left upper arm and axillary area ULTRASOUND Ordering provider: Carolina Whitfield APRN History: . R22.32 - Localized swelling, mass and lump, left upper limb . Comparison: None. FINDINGS/impression: Normal echogenicity is noted with no definite abnormality seen. Reviewed, dictated and finalized at location A.
== END 2023-11-17 09:47 | disposition home or self-care (01) ==
LOC: MICIMG 09:47
PROVIDERS: PCP Nurse Practitioner Adult Health; Visit Provider Nurse Practitioner Adult Health
DX: R22.32 Localized swelling, mass and lump, left upper limb (principal)
CPT/HCPCS: 76882

== ENCOUNTER 2024-01-16 00:22 | Day surgery (SDC) | payer BC, SELFPAY ==
[2023-10-11 09:44] VITALS: BMI 27.0
[2023-12-28 11:31] VITALS: BMI 27.0
[2024-01-16 12:55] VITALS: BP 145/84; PULSE 78; RESP 18; TEMP 36.1; O2SAT 100; BMI 27.0
[2024-01-16] MEDS: LACTATED RINGERS 1,000 ML 150 ML IV CONT (13:04)
--- NOTE | 2024-01-16 13:37 | P.PNAN_ITS ---
Anes - Initial Pre Proc Eval Procedure: Operation Date: 01/16/24 14:00 Proposed Procedures p Screening Colonoscopy - Paulino Mcclain MD Date/Time: 01/16/24 13:37 Surgeon: Paulino Mcclain MD Pre Op Diagnosis: Neoplasm screening Patient Data Age: 63 Gender: F Height: 1.68 m Weight: 75.9 kg Last Vital Signs Temp 36.1 C L 01/16/24 12:55 Pulse 78 01/16/24 12:55 Resp 18 01/16/24 12:55 BP 145/84 H 01/16/24 12:55 Pulse Ox 100 01/16/24 12:55 O2 Del Method Room Air 01/16/24 12:55 Allergies Allergy/AdvReac Type Severity Reaction Status Date / Time No Known Allergies Allergy Verified 01/16/24 12:54 Home Medications Medication Instructions Recorded Confirmed Type lisinopril 20 See Rx Instructions .Route 11/14/23 01/16/24 Rx mg-hydrochlorothiazide 12.5 mg .COMPLEX #90 tabs tablet rosuvastatin 20 mg tablet 20 mg PO DAILY #90 tabs 11/14/23 01/16/24 Rx Brain Health 1 tab-cap PO DAILY 12/28/23 01/16/24 History Diet Work Cider 1 cap PO DAILY 12/28/23 01/16/24 History cranberry fruit concentrate 250 mg 250 mg PO DAILY 12/28/23 01/16/24 History chewable tablet (Azo Cranberry) magnesium 200 mg tablet 200 mg PO DAILY 12/28/23 01/16/24 History Patient hx anesthesia problems: other (very slow to awaken) Family hx anesthesia problems: none Results Review: All pre-operative results and documents have been reviewed as part of the pre- operative evaluation. [facility] Past Medical History Medical History BMI 25.0-25.9,adult BMI 32.0-32.9,adult Hypertension Mass of left axilla Mixed hyperlipidemia Screening for breast cancer Surgical History Surgical History History of elbow surgery History of mandibular surgery Hx of shoulder surgery Family History Family History Father Hypertension Malignant neoplasm of prostate Family history of type 2 diabetes mellitus Mother Family history of Alzheimer's disease Family history of malignant neoplasm of cervix Patient's mother is in good health Family history of dementia Sibling COPD (chronic obstructive pulmonary disease) Tobacco abuse Social History Social History Smoking packs per day: 1 Smoking cigarettes per day: 20.0 Years smoked: 5 Smoking pack-years: 5.00 Smoking status: Former smoker Tobacco type: cigarettes Second hand tobacco smoke exposure: Yes Smoking end date: 02/15/88 Additional smoking assessment comments: 1/2 ppd [id number] Alcohol intake: never Substance use: never Substance use type: does not use Living arrangements: with family Occupation/Education: occupation 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 Informed Consent: The patient's anesthetic plan and its attendant risks and benefits were discussed with the patient/family/POA. Questions were solicited and answers provided to the satisfaction of the patient/family/POA.
--- NOTE | 2024-01-16 13:46 | P.HP_ITS ---
History of Present Illness History of Present Illness Consent: Risks, benefits, and alternatives have been discussed and questions answered. Patient agrees to proceed with procedure. Chief complaint: Neoplasm screening Narrative: Cyndy Sagastume is a 63 year old female here for screening colonoscopy, last one 10 years ago Review of Systems Review of Systems: All systems reviewed & are unremarkable except as noted in HPI and below PMFSH Past Medical History Medical History (Updated 01/16/24 @ 13:46 by Paulino Mcclain MD) BMI 25.0-25.9,adult BMI 32.0-32.9,adult Colon cancer screening Hypertension Mass of left axilla Mixed hyperlipidemia Screening for breast cancer Surgical History Surgical History History of elbow surgery History of mandibular surgery Hx of shoulder surgery Family History Family History Father Hypertension Malignant neoplasm of prostate Family history of type 2 diabetes mellitus Mother Family history of Alzheimer's disease Family history of malignant neoplasm of cervix Patient's mother is in good health Family history of dementia Sibling COPD (chronic obstructive pulmonary disease) Tobacco abuse Social History Social History Smoking packs per day: 1 Smoking cigarettes per day: 20.0 Years smoked: 5 Smoking pack-years: 5.00 Smoking status: Former smoker Tobacco type: cigarettes Second hand tobacco smoke exposure: Yes Smoking end date: 02/15/88 Additional smoking assessment comments: 1/2 ppd [id number] Alcohol intake: never Substance use: never Substance use type: does not use Living arrangements: with family Occupation/Education: occupation 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 Gender identity (if verbalized by the patient): Female Spiritual care concerns: No Meds Home Medications and Allergies Home Medications Medication Instructions Recorded Confirmed Type lisinopril 20 See Rx Instructions .Route 11/14/23 01/16/24 Rx mg-hydrochlorothiazide 12.5 mg .COMPLEX #90 tabs tablet rosuvastatin 20 mg tablet 20 mg PO DAILY #90 tabs 11/14/23 01/16/24 Rx Brain Health 1 tab-cap PO DAILY 12/28/23 01/16/24 History Diet Work Cider 1 cap PO DAILY 12/28/23 01/16/24 History cranberry fruit concentrate 250 mg 250 mg PO DAILY 12/28/23 01/16/24 History chewable tablet (Azo Cranberry) magnesium 200 mg tablet 200 mg PO DAILY 12/28/23 01/16/24 History Allergies Allergy/AdvReac Type Severity Reaction Status Date / Time No Known Allergies Allergy Verified 01/16/24 12:54 Vital Signs Vital Signs - 24 hr 01/16/24 12:55 Temperature 96.9 F L Pulse Rate 78 Respiratory Rate 18 Blood Pressure 145/84 H Pulse Oximetry 100 Oxygen Delivery Room Air Exam Const: General: comfortable and no acute distress HENMT: Face/Nose/Sinus: Normal nares present Eyes: General: appearance normal, both eyes and all related structures Neck: Neck: no JVD Resp: Auscultation: clear to auscultation bilaterally Cardio: Rate: regular rate Rhythm: regular rhythm GI: Inspection: non-distended GI Palp: Yes Soft to palpation Skin: General skin exam: normal color Neuro: General: gait normal Speech: normal speech Extrem: General: normal to inspection Psych: Mental Status: mental status grossly normal Assessment and Plan Assessment and plan (1) Colon cancer screening: Code(s): Z12.11 - Encounter for screening for malignant neoplasm of colon Status: Acute Assessment and Plan: colonoscopy
[2024-01-16 14:06] VITALS: BP 103/65; PULSE 69; RESP 16; O2SAT 98
[2024-01-16 14:16] VITALS: BP 101/66; PULSE 61; RESP 14; O2SAT 98
[2024-01-16 14:26] VITALS: BP 120/77; PULSE 63; RESP 19; O2SAT 100
== END 2024-01-16 14:34 | disposition home or self-care (01) ==
PROVIDERS: PCP Nurse Practitioner Adult Health; Referring Provider Nurse Practitioner Family; Visit Provider Internal Medicine Gastroenterology
PROC: 0DJD8ZZ Inspection of Lower Intestinal Tract, Via Natural or Artificial Opening Endoscopic (ICD-10-PCS; CPT 45378; principal; 2024-01-16 14:00)
DX: Z12.11 Encounter for screening for malignant neoplasm of colon (principal); K64.8 Other hemorrhoids; E78.2 Mixed hyperlipidemia; I10 Essential (primary) hypertension; Z87.891 Personal history of nicotine dependence
CPT/HCPCS: 45378; J2003; J2704; J7120

== ENCOUNTER 2024-04-03 13:53 | Outpatient (CLI) | payer BC, SELFPAY ==
--- NOTE | ~2024-04-03 | MM_ITS ---
EXAMINATION: MM screening [facility] BI w [place] HISTORY: Screening TECHNIQUE: Craniocaudal and mediolateral oblique 3-D tomosynthesis images were obtained and synthetic 2-D images were generated. CAD analysis was submitted and interpreted. COMPARISON: Comparison to multiple prior studies sequentially, with oldest reviewed study dated 07/2017. BREAST PARENCHYMAL COMPOSITION: Not dense: There are scattered areas of fibroglandular density. FINDINGS: There is distortion of both breasts consistent with prior breast reduction surgery. There i s no evidence of suspicious mass, calcification, or architectural distortion to suggest malignancy in either breast. There has been no suspicious interval change. IMPRESSION: 1. No mammographic evidence of malignancy. 2. Recommend routine screening mammography in one year. BI-RADS Category 1: Negative Reviewed, dictated and finalized at location [facility]. [facility]
== END 2024-04-03 13:54 | disposition home or self-care (01) ==
LOC: MICIMG 13:54
PROVIDERS: PCP Obstetrics & Gynecology Gynecology; Visit Provider Nurse Practitioner Adult Health
DX: Z12.31 Encounter for screening mammogram for malignant neoplasm of breast (principal)
CPT/HCPCS: 77063; 77067

== ENCOUNTER 2024-04-10 11:02 | Outpatient (CLI) | payer BC, SELFPAY ==
--- NOTE | ~2024-04-10 | DEXA_ITS ---
Bone Density Report Name: KAIT GRAYSON Age: 64 Sex: Female Ethnicity: White Date of : 1960 Indication: postmenopausal; screening for osteoporosis; Referring Provider: BELEM, JOSEPH Study: Bone densitometry was performed. Exam Date: April 10, 2024 Accession number: [id number] Bone Density: Region BMD T-score Z-score Classification AP Spine(L1-L4) 1.045 0.0 1.5 Normal Femoral Neck (Left) 0.822 -0.2 1.1 Normal Total Hip (Left) 1.047 0.9 1.9 Normal Femoral Neck (Right) 0.831 -0.2 1.2 Normal Total Hip (Right) 1.013 0.6 1.7 Normal Total Hip Mean 1.030 0.8 1.8 Normal World Health Organization criteria for BMD impression classify patients as: Normal (T-score at or above -1.0), Osteopenia (T-score between -1.0 and -2.5), or Osteoporosis (T-score at or below -2.5). 10-year Fracture Risk: FRAX not reported because: All T-scores for Spine Total, Hip Total, Femoral Neck at or above -1.0 Previous Exams: Region Exam Age BMD T-score BMD Change BMD Change Date g/cm2 vs Baseline vs Previous AP Spine (L1-L4) 04/10/2024 64 1.045 0.0 -0.015 (-1.4%) -0.015 (-1.4%) 07/05/2019 59 1.060 0.1 Total Hip(Left) 04/10/2024 64 1.047 0.9 -0.030 (-2.8%) -0.030 (-2.8%) 07/05/2019 59 1.077 1.1 Total Hip(Right) 04/10/2024 64 1.013 0.6 -0.077 (-7.1%) -0.077 (-7.1%) 07/05/2019 59 1.090 1.2 *Denotes significance at 95% confidence level, LSC for AP Spine = 0.022 g/cm2, LSC for Total Hip = 0.027 g/cm2 # Denotes dissimilar scan types or analysis methods Clinical Information Provided by Patient: Patient maximum height was 65.5 Menopause Age: 55 No regular weight bearing exercise Onset of menses at age 15 Number of children 3 Impression: The patient has normal bone mass. No significant bone loss was observed. Discussion: BONE DENSITY IS ABOVE THE MINIMUM DESIRABLE LEVEL AT ALL SKELETAL SITES TESTED. This patient?s bone mineral density is above the minimum desirable level (T-score -1.0 or better) at all sites measured. The patient should follow a healthful lifestyle (good nutrition with adequate calcium and vitamin D, and appropriate weight-bearing exercise). Follow-Up: Consider repeating this study in 5 years or sooner if there is some new clinical indication. Reported by: RUBY on 04/10/2024 11:38:00 AM. Reviewed, dictated and finalized at location [facility]
--- OUTSIDE RECORDS SUMMARY | 2024-04-10 13:07 | XMS_ITS | Clinical Summary ---
Author Organization [facility] Address [address] [place] [address] Care Team Providers Care Pin Worker Name Role Phone Frandy Hendricks MD Primary Care Provider [phone] Source Comments [facility],non-owned Affiliates and Associated Physician Practices is amultiple site organization consisting of ambulatory clinics and hospital sitesin [place], [place], [place] and [place]. This disclosure is being madepursuant to the Care Everywhere program and may not contain all information available regarding this patient. Last updated 17.[facility] Allergies No known active allergies Medications * Be aware that medications may not be up to date on this document. Alwaysverify current medications with the patient. Medication Sig Dispensed Refills Start Date End Date Status rosuvastatin (Crestor) 20 MG tablet Take 1 (one) tablet by mouth once daily Active lisinopril-hydroCHLOR Othiazide (Prinzide; Zestoretic) 20-12.5 MG tablet Take 1 (one) tablet by mouth once daily Active saline nasal spray ([place]; Baby [place]) 0.65 % nasal sprayIndications:Orbi izzy cellulitis on left,Pain around left eye,Acute conjunctivitis of left eye, unspecified acute conjunctivitis type [place] 1 (one) spray into each nostril every 2 hours as needed for Dry Nose 60 mL 02/22/2023 Active artificial tears ophthalmic solution Instill 1 (one) drop into both eyes 3 times daily as needed 15 mL 02/22/2023 Active Biotin 1 MG 5,000 mcg 09/17/2021 Active Eliquis 2.5 MG tablet Take 1 (one) tablet by mouth 2 times daily FOR 5 DAYS 03/16/2022 Active cefadroxil (Duricef) 500 MG capsule TAKE 1 CAPSULE BY MOUTH TWICE DAILY FOR 14 DAYS 03/16/2022 Active cyclobenzaprine (Flexeril) 10 MG tablet Take 1 (one) tablet by mouth 3 times daily as needed FOR MUSCLE SPASM 02/10/2023 Active diazePAM (Valium) 5 MG tablet TAKE 1 TABLET BY MOUTH EVERY 6 HOURS NEEDED FOR MUSCLE SPASM 03/16/2022 Active diazePAM (Valium) 5 MG tablet 1 (one) tablet 03/16/2022 Active docusate sodium (Colace) 100 MG capsule TAKE 1 CAPSULE BY MOUTH TWICE DAILY NEEDED FOR CONSTIPATION 03/16/2022 Active docusate sodium (Colace) 100 MG capsule 1 (one) capsule 03/16/2022 Active Active Problems Problem Noted Date Diagnosed Date Periorbital cellulitis of left eye 02/21/2023 Primary hypertension 02/21/2023 HLD (hyperlipidemia) 02/21/2023 Acute conjunctivitis of left eye, unspecified acute conjunctivitis type 02/20/2023 Pain around left eye 02/20/2023 Resolved Problems Problem Noted Date Diagnosed Date Resolved Date Orbital cellulitis on left 02/20/2023 0 02/21/2023 Social History Tobacco Use Types Packs/Day Years Used Date Smoking Tobacco: Never Assessed Sex and Gender Information Value Date Recorded Sex Assigned at Not on file Gender Identity Not on file Sexual Orientation Not on file Last Filed Vital Signs Vital Sign Reading Time Taken Comments Blood Pressure 109/74 02/22/2023 4:31 AM RN BURN Pulse 61 02/22/2023 11:49 AM RN BURN Temperature 36.7 C (98 F) 02/22/2023 11:49 AM RN BURN Respiratory Rate 18 02/22/2023 11:49 AM RN BURN Oxygen Saturation 99% 02/22/2023 11:49 AM RN BURN Inhaled Oxygen Concentration - - Weight 76.7 kg (169 lb) 02/20/2023 9:10 PM RN BURN Height 165.1 cm (5' 5 ) 02/20/2023 9:10 PM RN BURN Body Mass Index 28.12 02/20/2023 9:10 PM RN BURN Plan of Treatment Health Maintenance Due Date Last Done Comments COLOGUARD (AGES 45-75) - COL ON CA SCREENING 1962 COLON MONITORING 1962 COLONOSCOPY - COLON CA SCREENING 1962 CT COLONOGRAPHY - COLON CA SCREENING 1962 Colorectal Cancer Screening 1962 FIT - COLON CA SCREENING 1962 FLEX SIG - COLON CA SCREENING 1962 MAMMOGRAM 1962 PAP SMEAR 1962 HIV SCREENING 1977 HEPATITIS C SCREENING 01/18/1980 DTAP/TDAP/TD VACCINES (1 - Tdap) 1981 PNEUMOCOCCAL VACCINE 50+ (1 of 1 - PCV) 01/23/2012 ZOSTER VACCINE (1 of 2) 01/23/2012 COVID-19 VACCINE (3 - 2023-2 5 season) 2023 08/12/2020, 07/22/2020 INFLUENZA VACCINE (#1) 2023 1, 11/14/2018 DEPRESSION SCREENING 02/15/2024 SCREENING FOR DIABETES 02/22/2026 4, 02/21/2023, 02/20/2023 Respiratory Syncytial Virus (RSV) Vaccine Pt: or over 60 yrs (1 - 1-dose 75+ series) 2037 HEPATITIS B VACCINE Aged Out No longe r eligible based on patient's age to complete this topic HIB VACCINE Aged Out No longer eligi ble based on patient's age to complete this topic HPV VACCINE Aged Out No longer eligi ble based on patient's age to complete this topic MENINGOCOCCAL (Group B) VACCINE Aged Out No longer eligible b ased on patient's age to complete this topic MENINGOCOCCAL VACCINE Aged Out No andrade christy eligible based on patient's age to complete this topic PNEUMOCOCCAL VACCINE Aged Out No long er eligible based on patient's age to complete this topic Procedures Procedure Name Priority Date/Time Associated Diagnosis Comments BASIC METABOLIC PANEL (CALCIUM TOTAL) Routine 02/22/2023 1:48 AM RN BURN Orbital cellulitis on left Pain around left eye Acute conjunctivitis of left eye, unspecified acute conjunctivitis type from Last 3 Months or Most Recently Relevant to Health Maintenance Results * (ABNORMAL) BASIC METABOLIC PANEL (CALCIUM TOTAL) (02/22/2023 1:48 AM RN BURN) BUN 15 7 - 26 mg/dL 02/22/2023 2:32 AM [facility] Creatinine 0.58 0.56 - 0.96 mg/dL 02/22/2023 2:32 AM [facility] Sodium 143 136 - 145 mmol/L 02/22/2023 2:32 AM [facility] Potassium 3.9 3.5 - 4.5 mmol/L 02/22/2023 2:32 AM [facility] Chloride 109(H) 98 - 107 mmol/L 02/22/2023 2:32 AM [facility] CO2 24 22 - 29 mmol/L 02/22/2023 2:32 AM [facility] Glucose 96 70 - 115 mg/dL 02/22/2023 2:32 AM [facility] Calcium 8.9 8.4 - 10.2 mg/dL 02/22/2023 2:32 AM [facility] Anion Gap 10 6 - 16 02/22/2023 2:32 AM [facility] BUN/Creatinine Ratio 26(H) 7 - 23 02/22/2023 2:32 AM [facility] Osmolality Calculated 297(H) 275 - 295 mOsm/kg 02/22/2023 2:32 AM [facility] eGFR by CKD-EPI >90 >=90 mL/min/1.7 3 m2 02/22/2023 2:32 AM [facility] Blood BLOOD SPECIMEN / Unknown Lab Venipuncture / Unknown 02/22/2023 1:48 AM RN BURN 02/22/2023 2:03 AM [facility] Dianne King APRN-TABLE TENDER LAB - CHEMISTRY ORDERABLES [facility] [address] [place] [address], [facility] [phone] from Last 3 Months or Most Recently Relevant to Health Maintenance Advance Directives * Full Code (Latest Code Status on File) Date Activated Date Inactivated Comments 02/20/2023 9:52 PM 02/22/2023 4:59 PM Care Teams Pin Worker Relationship Specialty Start Date End Date Frandy Hendricks MD [address] [place] [address] PCP - General Family Medicine 02/21/23
--- OUTSIDE RECORDS SUMMARY | 2024-04-10 13:07 | XMS_ITS | Encounter Summary ---
Author Organization [facility] Address [address] [place] [address] Care Team Providers Care Layup Worker Name Role Phone Frandy Hendricks MD Primary Care Provider [phone] Encounter Details Date Type Department Care Team (Late st Contact Info) Description 02/21/2023 Ophth Exam [facility] - Ophthalmology [address] [place] [id number] Otilio Torres MD [address] [facility] [place] [address] Social History Tobacco Use Types Packs/Day Years Used Date Smoking Tobacco: Never Assessed Sex and Gender Information Value Date Recorded Sex Assigned at Not on file Gender Identity Not on file Sexual Orientation Not on file documented as of this encounter Plan of Treatment Not on file documented as of this encounter Visit Diagnoses Not on filedocumented in this encounter Care Teams Layup Worker Relationship Specialty Start Date End Date Frandy Hendricks MD [address] [place] [phone] PCP - General Family Medicine 02/21/23 documented as of this encounter
--- OUTSIDE RECORDS SUMMARY | 2024-04-10 13:07 | XMS_ITS | Encounter Summary ---
Author Organization [facility] Address [address] [place] [address] Care Team Providers Care Sap Bw Consultant Name Role Phone Frandy Hendricks MD Primary Care Provider [phone] Encounter Details Date Type Department Care Team (Late st Contact Info) Description 03/11/2023 Telephone [facility] - Ophthalmology [address] [place] [phone] Yefri Bobby MD [address] [place] [address] [place] [phone] Social History Tobacco Use Types Packs/Day Years Used Date Smoking Tobacco: Never Assessed Sex and Gender Information Value Date Recorded Sex Assigned at Not on file Gender Identity Not on file Sexual Orientation Not on file documented as of this encounter Miscellaneous Notes * Telephone Encounter - Matthew Beyer - 03/11/2023 2:41 PM CST Patient is calling to reschedule her appt from 03/07. Next available's are showing for [facility] documented in this encounter Plan of Treatment Not on file documented as of this encounter Visit Diagnoses Not on filedocumented in this encounter Care Teams Sap Bw Consultant Relationship Specialty Start Date End Date Frandy Hendricks MD [address] [place] [address] PCP - General Family Medicine 1/8/24 documented as of this encounter
--- OUTSIDE RECORDS SUMMARY | 2024-04-10 13:07 | XMS_ITS | Clinical Summary ---
Author Organization [facility] Administrative Offices Address [address] [place] [address] Care Team Providers Care Doctor Of Chiropractic Name Role Phone Frandy Hendricks MD Primary Care Provider [phone] Allergies No known active allergies Medications multivitamin (DAILY-KIRA) tablet Take 1 Tablet by mouth daily. supp Active naproxen sodium (ALEVE) 220 mg Tablet Take 220 mg by mouth every 4 hours as needed for Pain, Moderate. pain Active calcium as carbonate (TUMS) 500 mg (200 mg elemental) Tablet, Chewable Take 400 mg by mouth. Active meloxicam (MOBIC) 15 mg tablet Take 1 Tablet (15 mg) by mouth daily. 30 Tablet 02/18/2020 9:53 AM SALES SUPPORT ENGINEER 02/18/2020 Active methylPREDNISol one (MEDROL DOSPACK) 4 mg Tablets, Dose Pack Take as directed 21 Tablet 07/07/2020 9:08 AM CDT 07/07/2020 Active Immunizations Immunization Administration Dates Next Due Influenza Seasonal Unspecified Formulation IM Social History Tobacco Use Types Packs/Day Years Used Date Smoking Tobacco: Former Cigarettes Smokeless Tobacco: Never Comments:3-5 cigs/day Alcohol Use Standard Drinks/Week Comments Yes 0 (1 standard drink = 0.6 oz pur e alcohol) Comments No Sex and Gender Information Value Date Recorded Sex Assigned at Not on file Legal Sex Female 9:03 AM CDT Gender Identity Not on file Sexual Orientation Not on file Last Filed Vital Signs Vital Sign Reading Time Taken Comments Blood Pressure 154/83 11/22/2019 8:33 PM CDT Pulse 90 11/22/2019 8:33 PM CDT Temperature 35.8 C (96.5 F) 11/22/2019 8:33 PM CDT Respiratory Rate 16 11/22/2019 8:33 PM CDT Oxygen Saturation 98% 11/22/2019 8:33 PM CDT Inhaled Oxygen Concentration - - Weight 90.8 kg (200 lb 3.2 oz) 11/22/2019 1:25 P M CDT Height 165.1 cm (5' 5 ) 11/22/2019 1:25 PM CDT Body Mass Index 33.32 11/22/2019 1:25 PM CDT Plan of Treatment Health Maintenance Due Date Last Done Comments DTAP/TDAP/TD VACCINES (1 - Tdap) 1981 CERVICAL CANCER SCREENING 01/23/1992 BREAST CANCER SCREENING 2002 COLORECTAL SCREENING 2007 Colorectal Cancer Screening 2007 FIT-DNA Q 3 years 2007 FIT/FOBT Q 1 year 2007 Flex Sig/CT Colonography Q 5 years 2007 ZOSTER VACCINE (1 of 2) 01/23/2012 INFLUENZA VACCINE (#1) 2023 11/14/2018 RSV VACCINE (60+ or ) (1 - 1-dose 75+ series) 2037 PNEUMOCOCCAL VACCINE 0-64 YEARS Aged Out No longer eligible based on patient's age to complete this topic Insurance DR VALDEZ [address] BLUE ACCESS/[place] [address] RX [employer] PL[employer] (INTERNAL) [facility] RX [employer]ANS (INTERNAL) [facility] Advance Directives For more information, please contact: [phone] * Full Code (Latest Code Status on File) Date Activated Date Inactivated Comments 11/22/2019 2:21 PM 11/22/2019 11:01 PM * Full Code Date Activated Date Inactivated Comments 11/22/2019 1:26 PM 11/22/2019 2:21 PM Care Teams Doctor Of Chiropractic Relationship Specialty Start Date End Date Frandy Hendricks MD [address] [place] [address] PCP - General Family Practice 11/13/19
--- OUTSIDE RECORDS SUMMARY | 2024-04-10 13:07 | XMS_ITS | Referral Summary ---
Author Organization [facility] Address [address] [place] [address] Care Team Providers Care Window Decorator Name Role Phone Frandy Hendricks MD Primary Care Provider [phone] Source Comments [facility],non-owned Affiliates and Associated Physician Practices is amultiple site organization consisting of ambulatory clinics and hospital sitesin [place], [place], [place] and [place]. This disclosure is being madepursuant to the Care Everywhere program and may not contain all information available regarding this patient. Last updated 17.[facility] Allergies No known active allergies Medications * [...] mouth once daily Active saline nasal spray ([place]; Baby [place]) 0.65 % nasal sprayIndications:Orbi izzy cellulitis on left,Pain around left eye,Acute conjunctivitis of left eye, unspecified acute conjunctivitis type Byron 1 (one) spray into each nostril every [...] Comments Blood Pressure 109/74 02/22/2023 4:31 AM CROOK OPERATOR Pulse 61 02/22/2023 11:49 AM CROOK OPERATOR Temperature 36.7 C (98 F) 02/22/2023 11:49 AM CROOK OPERATOR Respiratory Rate 18 02/22/2023 11:49 AM CROOK OPERATOR Oxygen Saturation 99% 02/22/2023 11:49 AM CROOK OPERATOR Inhaled Oxygen Concentration - - Weight 76.7 kg (169 lb) 02/20/2023 9:10 PM CROOK OPERATOR Height 165.1 cm (5' 5 ) 02/20/2023 9:10 PM CROOK OPERATOR Body Mass Index 28.12 02/20/2023 9:10 PM CROOK OPERATOR Plan of Treatment Not on file Procedures Procedure Name Priority Date/Time Associated Diagnosis Comments BASIC METABOLIC PANEL (CALCIUM TOTAL) Routine 02/22/2023 1:48 AM CROOK OPERATOR Orbital cellulitis on left Pain around left eye Acute conjunctivitis of left eye, unspecified acute conjunctivitis type from Last 3 Months or Most Recently Relevant to Health Maintenance Results * (ABNORMAL) BASIC METABOLIC PANEL (CALCIUM TOTAL) (02/22/2023 1:48 AM [facility]) BUN 15 7 - 26 mg/dL 02/22/2023 2:32 AM [facility] Creatinine 0.58 0.56 - 0.96 mg/dL 02/22/2023 2:32 AM [facility] Sodium 143 136 - 145 mmol/L 02/22/2023 2:32 AM [facility] Potassium 3.9 3.5 - 4.5 mmol/L 02/22/2023 2:32 AM [facility] Chloride 109(H) 98 - 107 mmol/L 02/22/2023 2:32 AM [facility] CO2 24 22 - 29 mmol/L 02/22/2023 2:32 AM [facility] Glucose 96 70 - 115 mg/dL 02/22/2023 2:32 AM [facility] Calcium 8.9 8.4 - 10.2 mg/dL 02/22/2023 2:32 AM [facility] Anion Gap 10 6 - 16 02/22/2023 2:32 AM [facility] BUN/Creatinine Ratio 26(H) 7 - 23 02/22/2023 2:32 AM [facility] Osmolality Calculated 297(H) 275 - 295 mOsm/kg 02/22/2023 2:32 AM [facility] eGFR by CKD-EPI >90 >=90 mL/min/1.7 3 m2 02/22/2023 2:32 AM [facility] Blood BLOOD SPECIMEN / Unknown Lab Venipuncture / Unknown 02/22/2023 1:48 AM CROOK OPERATOR 02/22/2023 2:03 AM [facility] Dianne King APRN-WOODYARD OPERATOR LAB - CHEMISTRY ORDERABLES [facility] [address] [place] [address], [facility] [phone] from Last 3 Months or Most Recently Relevant to Health Maintenance Advance Directives * Full Code (Latest Code Status on File) Date Activated Date Inactivated Comments 02/20/2023 9:52 PM 02/22/2023 4:59 PM Care Teams Window Decorator Relationship Specialty Start Date End Date Frandy Hendricks MD [address] [place] [address] PCP - General Family Medicine 02/21/23
--- OUTSIDE RECORDS SUMMARY | 2024-04-10 13:07 | XMS_ITS | Encounter Summary ---
Author Organization [facility] Address [address] [facility] [place] [address] Care Team Providers Care Geriatric Physical Therapist Name Role Phone Frandy Hendricks MD Primary Care Provider [phone] Encounter Details Date Type Department Care Team (Late st Contact Info) Description 02/22/2023 Ophth Exam [facility] - Ophthalmology [address] [place] [id number] Otilio Torres MD [address] [facility] [place] [address] Social History Tobacco Use Types Packs/Day Years Used Date Smoking Tobacco: Never Assessed Sex and Gender Information Value Date Recorded Sex Assigned at Not on file Gender Identity Not on file Sexual Orientation Not on file documented as of this encounter Plan of Treatment Not on file documented as of this encounter Visit Diagnoses Not on filedocumented in this encounter Care Teams Geriatric Physical Therapist Relationship Specialty Start Date End Date Frandy Hendricks MD [address] [place] [phone] PCP - General Family Medicine 02/21/23 documented as of this encounter
--- OUTSIDE RECORDS SUMMARY | 2024-04-10 13:07 | XMS_ITS | Encounter Summary ---
Author Organization [facility] Address [address] [facility] [place] [address] Care Team Providers Care Procurement Internship Name Role Phone Unknown, Provider Primary Care Provider Frandy Perez MD Primary Care Provider [phone] Encounter Details Date Type Department Care Team (Late st Contact Info) Description 02/20/2023 Ophth Exam [facility] - Ophthalmology [address] [place] [phone] Malcolm Wynne MD [address] [facility] [place] [phone] Social History Tobacco Use Types Packs/Day Years Used Date Smoking Tobacco: Never Assessed Sex and Gender Information Value Date Recorded Sex Assigned at Not on file Gender Identity Not on file Sexual Orientation Not on file documented as of this encounter Plan of Treatment Not on file documented as of this encounter Visit Diagnoses Not on filedocumented in this encounter Care Teams Procurement Internship Relationship Specialty Start Date End Date Unknown, Provider PCP - General 02/20/23 02/20/23 Frandy Hednricks MD [address] [place] [phone] PCP - General Family Medicine 02/21/23 documented as of this encounter
--- OUTSIDE RECORDS SUMMARY | 2024-04-10 13:07 | XMS_ITS | Clinical Summary ---
Author Organization [facility] Physician Office Building [address] [place] [phone] Care Team Providers Care Presser Hand Name Role Phone Frandy Hendricks MD Primary Care Provider [phone] Allergies No known active allergies Medications lisinopril-hydro CHLOROthiazide (ZESTORETIC) 20-12.5 mg per tablet 02/18/2020 Active rosuvastatin (CRESTOR) 20 mg tablet 03/03/2020 Active ergocalciferol (VITAMIN D) 50,000 unit capsule Take 50,000 Units by mouth 02/18/2020 Active Active Problems Problem Noted Date Diagnosed Date SOB (shortness of breath) on exertion 03/07/2020 Hypertension 03/07/2020 Palpitations 03/07/2020 Hyperlipidemia 03/07/2020 Surgical History Surgery Date Site/Laterality Comments KNEE ARTHROSCOPY W/ LATERAL RELEASE 2016 (x2) BREAST SURGERY 02/14/1997 - 02/13/1998 TUBAL LIGATION 02/14/1994 - 02/13/1995 Medical History Medical History Date Comments Migraines 1996 Hypertension 2016 Family History Medical History Relation Name Comments Alzheimer's disease Father Lucio Dahl Arthritis Father Lucio Dahl Cancer Father Lucio Dahl Diabetes Father Lucio Dahl Hearing loss Father Lucio Dahl Heart disease Father Lucio Dahl Hypertension Father Lucio Dahl Alzheimer's disease Mother Kym Dahl Cancer Mother Kym Dahl Hypertension Mother Kymesteban Dahl COPD Sister Mindy Dahl Kidney disease Sister Mindy Dalh Relation Name Status Comments Father Lucio Dahl Mother Kym Dahl Sister Mindy Dahl Social History Tobacco Use Types Packs/Day Years Used Date Smoking Tobacco: Former Smokeless Tobacco: Never Alcohol Use Standard Drinks/Week Comments Yes 2 (1 standard drink = 0.6 oz pure alcohol) Occasional drink; 1-2 glasses wine per month Personal Safety Answer Date Recorded Getting School Help Needed Not on file 04/29 Comments Unknown Sex and Gender Information Value Date Recorded Sex Assigned at Not on file Legal Sex Female 8:10 AM FOREST LAW AND POLICY PROFESSOR Gender Identity Female 03/05/2020 1:49 PM FOREST LAW AND POLICY PROFESSOR Sexual Orientation Straight 03/05/2020 1: 49 PM FOREST LAW AND POLICY PROFESSOR Obstetrics History Last Filed Vital Signs Vital Sign Reading Time Taken Comments Blood Pressure 131/87 03/17/2020 2:42 PM FOREST LAW AND POLICY PROFESSOR Pulse 69 03/07/2020 10:55 AM FOREST LAW AND POLICY PROFESSOR Temperature 36.5 C (97.7 F) 03/17/2020 2:42 PM FOREST LAW AND POLICY PROFESSOR Respiratory Rate 18 03/07/2020 10:55 AM FOREST LAW AND POLICY PROFESSOR Oxygen Saturation 95% 03/07/2020 10:55 AM FOREST LAW AND POLICY PROFESSOR Inhaled Oxygen Concentration - - Weight 92.5 kg (204 lb) 03/07/2020 10:55 AM FOREST LAW AND POLICY PROFESSOR Height 165.1 cm (5' 5 ) 03/07/2020 10:55 AM FOREST LAW AND POLICY PROFESSOR Body Mass Index 33.95 03/07/2020 10:55 AM FOREST LAW AND POLICY PROFESSOR Plan of Treatment Health Maintenance Due Date Last Done Comments Breast Cancer Screening-Mammogram 1962 Cervical Cancer Screening 1962 Colon Cancer Screening-Colonoscopy 1962 Depression Screening 1962 Hepatitis C Screening 1962 Hepatitis B Screening 01/23/1980 Regular Well Visit/Exam 18-64 01/23/1980 Zoster Vaccine (1 of 2) 01/23/2012 Covid-19 Vaccine (3 - 2023-2 5 season) 2023 08/12/2020, 07/22/2020 Influenza Vaccine (#1) 2023 , 11/14/2018 DTaP/Tdap/Td Vaccine (3 - Td or Tdap) 05/30/2029 05/31/2019, 06/03/2016 Pneumococcal vaccine <65 Aged Out No longer eligible based on patient's age to complete this topic Insurance [facility] CHOICE [facility] Address: [place] [address] Care Teams Presser Hand Relationship Specialty Start Date End Date Frandy Hendricks MD PCP - General Family Medicine 03/07/20
--- OUTSIDE RECORDS SUMMARY | 2024-04-10 13:07 | XMS_ITS | Referral Summary ---
Author Organization [facility] [address] [place] [phone] Care Team Providers Care Dental Biller Name Role Phone Frandy Hendricks MD Primary Care Provider [phone] Allergies No known active allergies Medications lisinopril-hydro CHLOROthiazide (ZESTORETIC) 20-12.5 mg per tablet 02/18/2020 Active rosuvastatin (CRESTOR) 20 mg tablet 03/03/2020 Active ergocalciferol (VITAMIN D) 50,000 unit capsule Take 50,000 Units by mouth 02/18/2020 Active Active Problems Problem Noted Date Diagnosed Date SOB (shortness of breath) on exertion 03/07/2020 Hypertension 03/07/2020 Palpitations 03/07/2020 Hyperlipidemia 03/07/2020 Social History Tobacco Use Types Packs/Day Years [...] on file Legal Sex Female 8:10 AM FLAT OPTICAL ELEMENT MAKER Gender Identity Female 03/05/2020 1:49 PM FLAT OPTICAL ELEMENT MAKER Sexual Orientation Straight 03/05/2020 1: 49 PM FLAT OPTICAL ELEMENT MAKER Last Filed Vital Signs Vital Sign Reading Time Taken Comments Blood Pressure 131/87 03/17/2020 2:42 PM FLAT OPTICAL ELEMENT MAKER Pulse 69 03/07/2020 10:55 AM FLAT OPTICAL ELEMENT MAKER Temperature 36.5 C (97.7 F) 03/17/2020 2:42 PM FLAT OPTICAL ELEMENT MAKER Respiratory Rate 18 03/07/2020 10:55 AM FLAT OPTICAL ELEMENT MAKER Oxygen Saturation 95% 03/07/2020 10:55 AM FLAT OPTICAL ELEMENT MAKER Inhaled Oxygen Concentration - - Weight 92.5 kg (204 lb) 03/07/2020 10:55 AM FLAT OPTICAL ELEMENT MAKER Height 165.1 cm (5' 5 ) 03/07/2020 10:55 AM FLAT OPTICAL ELEMENT MAKER Body Mass Index 33.95 03/07/2020 10:55 AM FLAT OPTICAL ELEMENT MAKER Plan of Treatment Not on file Insurance [facility] CHOICE OOS Care Teams Dental Biller Relationship Specialty Start Date End Date Frandy Hendricks MD PCP - General Family Medicine 03/07/20
--- OUTSIDE RECORDS SUMMARY | 2024-04-10 13:07 | XMS_ITS | Patient Health Summary ---
Author Organization [facility] [employer] Address [address] [place] [address] Care Team Providers Care Residential Property Manager Name Role Phone Frandy Hendricks MD Primary Care Provider [phone] Note from [facility],non-owned Affiliates and Associated Physician Practices is amultiple site organization consisting of ambulatory clinics and hospital sitesin [place], [place], [place] and [place]. This disclosure is being madepursuant to the Care Everywhere program and may not contain all information available regarding this patient. Last updated 17.[facility] Allergies No known active allergies Medications * Be aware that medications may not be up to date on this document. Alwaysverify current medications with the patient. * rosuvastatin (Crestor) 20 MG tablet Take 1 (one) tablet by mouth once daily * lisinopril-hydroCHLOROthiazide (Prinzide; Zestoretic) 20-12.5 MG tablet Take 1 (one) tablet by mouth once daily * saline nasal spray ([place]; Baby [place]) 0.65 % nasal spray(Started 02/22/2023) [place] 1 (one) spray into each nostril every 2 hours as needed for Dry Nose * artificial tears ophthalmic solution(Started 02/22/2023) Instill 1 (one) drop into both eyes 3 times daily as needed * Biotin 1 MG(Started 09/17/2021) 5,000 mcg * Eliquis 2.5 MG tablet(Started 03/16/2022) Take 1 (one) tablet by mouth 2 times daily FOR 5 DAYS * cefadroxil (Duricef) 500 MG capsule(Started 03/16/2022) TAKE 1 CAPSULE BY MOUTH TWICE DAILY FOR 14 DAYS * cyclobenzaprine (Flexeril) 10 MG tablet(Started 02/10/2023) Take 1 (one) tablet by mouth 3 times daily as needed FOR MUSCLE SPASM * diazePAM (Valium) 5 MG tablet(Started 03/16/2022) TAKE 1 TABLET BY MOUTH EVERY 6 HOURS NEEDED FOR MUSCLE SPASM * diazePAM (Valium) 5 MG tablet(Started 03/16/2022) 1 (one) tablet * docusate sodium (Colace) 100 MG capsule(Started 03/16/2022) TAKE 1 CAPSULE BY MOUTH TWICE DAILY NEEDED FOR CONSTIPATION * docusate sodium (Colace) 100 MG capsule(Started 03/16/2022) 1 (one) capsule Active Problems Problem Noted Date Diagnosed Date [...] Comments Blood Pressure 109/74 02/22/2023 4:31 AM EVENT REPRESENTATIVE Pulse 61 02/22/2023 11:49 AM EVENT REPRESENTATIVE Temperature 36.7 C (98 F) 02/22/2023 11:49 AM EVENT REPRESENTATIVE Respiratory Rate 18 02/22/2023 11:49 AM EVENT REPRESENTATIVE Oxygen Saturation 99% 02/22/2023 11:49 AM EVENT REPRESENTATIVE Inhaled Oxygen Concentration - - Weight 76.7 kg (169 lb) 02/20/2023 9:10 PM EVENT REPRESENTATIVE Height 165.1 cm (5' 5 ) 02/20/2023 9:10 PM EVENT REPRESENTATIVE Body Mass Index 28.12 02/20/2023 9:10 PM EVENT REPRESENTATIVE Procedures * CBC W/O DIFFERENTIAL(Performed 02/22/2023) Performed for Orbital cellulitis on left, Pain around left eye, Acute conjunctivitis of left eye, unspecified acute conjunctivitis type * BASIC METABOLIC PANEL (CALCIUM TOTAL)(Performed 02/22/2023) Performed for Orbital cellulitis on left, Pain around left eye, Acute conjunctivitis of left eye, unspecified acute conjunctivitis type * PHOSPHORUS BLOOD(Performed 02/21/2023) Performed for Orbital cellulitis on left, Pain around left eye, Acute conjunctivitis of left eye, unspecified acute conjunctivitis type * MAGNESIUM BLOOD(Performed 02/21/2023) Performed for Orbital cellulitis on left, Pain around left eye, Acute conjunctivitis of left eye, unspecified acute conjunctivitis type * BASIC METABOLIC PANEL (CALCIUM TOTAL)(Performed 02/21/2023) Performed for Orbital cellulitis on left, Pain around left eye, Acute conjunctivitis of left eye, unspecified acute conjunctivitis type * PROCALCITONIN LEVEL(Performed 02/21/2023) Performed for Orbital cellulitis on left, Pain around left eye, Acute conjunctivitis of left eye, unspecified acute conjunctivitis type * CBC W/O DIFFERENTIAL(Performed 02/21/2023) Performed for Orbital cellulitis on left, Pain around left eye, Acute conjunctivitis of left eye, unspecified acute conjunctivitis type * COMPREHENSIVE METABOLIC PANEL(Performed 02/20/2023) * CBC W AUTO DIFFERENTIAL(Performed 02/20/2023) * CT FACIAL BONES WWO CONTRAST(Performed 02/20/2023) Performed for Orbital cellulitis on left * DERMATOPATHOLOGY(Performed 05/23/2017) Results * CBC W/O DIFFERENTIAL (02/22/2023 1:48 AM EVENT REPRESENTATIVE) Only the most recent of2 resultswithin the time period is included. WBC 4.5 4.0 - 10.7 x10E9/L 02/22/2023 2:13 AM [facility] RBC Count 4.07 3.90 - 5.20 x10E12/L 02/22/2023 2:13 AM [facility] Hemoglobin 12.2 11.9 - 15.8 g/dL 02/22/2023 2:13 AM [facility] Hematocrit 38.2 34.8 - 46.1 % 02/22/2023 2:13 AM [facility] MCV 93.9 80.0 - 98.0 fL 02/22/2023 2:13 AM [facility] MCH 30.0 26.7 - 33.6 pg 02/22/2023 2:13 AM [facility] MCHC 31.9 31.7 - 36.3 g/dL 02/22/2023 2:13 AM [facility] RDW-CV 13.3 11.3 - 14.8 % 02/22/2023 2:13 AM [facility] Platelet Count 182 150 - 420 x10E9/L 02/22/2023 2:13 AM [facility] MPV 11.4 7.8 - 11.4 fL 02/22/2023 2:13 AM [facility] Blood BLOOD SPECIMEN / Unknown Lab Venipuncture / Unknown 02/22/2023 1:48 AM EVENT REPRESENTATIVE 02/22/2023 2:03 AM EVENT REPRESENTATIVE Dianne King LOCKSTITCH LINING MAKER-RECREATIONAL COUNSELOR LAB - HEMATOLOGY ORDERABLES [address] [address] [phone] * (ABNORMAL) BASIC METABOLIC PANEL (CALCIUM TOTAL) (02/22/2023 1:48 AM EVENT REPRESENTATIVE) Only the most recent of2 resultswithin the time period is included. BUN 15 7 - 26 mg/dL 02/22/2023 2:32 AM [facility] Creatinine 0.58 0.56 - 0.96 mg/dL 02/22/2023 2:32 AM [facility] Sodium 143 136 - 145 mmol/L 02/22/2023 2:32 AM [facility] Potassium 3.9 3.5 - 4.5 mmol/L 02/22/2023 2:32 AM [facility] Chloride 109(H) 98 - 107 mmol/L 02/22/2023 2:32 AM [facility] CO2 24 22 - 29 mmol/L 02/22/2023 2:32 AM [facility] Glucose 96 70 - 115 mg/dL 02/22/2023 2:32 AM [facility] Calcium 8.9 8.4 - 10.2 mg/dL 02/22/2023 2:32 AM [facility] Anion Gap 10 6 - 16 02/22/2023 2:32 AM [facility] BUN/Creatinine Ratio 26(H) 7 - 23 02/22/2023 2:32 AM [facility] Osmolality Calculated 297(H) 275 - 295 mOsm/kg 02/22/2023 2:32 AM [facility] eGFR by CKD-EPI >90 >=90 mL/min/1.7 3 m2 02/22/2023 2:32 AM [facility] Blood BLOOD SPECIMEN / Unknown Lab Venipuncture / Unknown 02/22/2023 1:48 AM EVENT REPRESENTATIVE 02/22/2023 2:03 AM EVENT REPRESENTATIVE Dianne SIMONS LAB - CHEMISTRY ORDERABLES [address] [address], [facility] [phone] * PHOSPHORUS BLOOD (02/21/2023 12:37 AM EVENT REPRESENTATIVE) Phosphorus 4.2 2.9 - 5.1 mg/dL 02/21/2023 2:05 AM [facility] Blood BLOOD SPECIMEN / Unknown Lab Venipuncture / Unknown 02/21/2023 12:37 AM EVENT REPRESENTATIVE 02/21/2023 1:37 AM EVENT REPRESENTATIVE Dianne SIMONS LAB - CHEMISTRY ORDERABLES Performing Organization Address City/[facility]/ZIP Co de Phone Number [address] [address], [place] [phone] * MAGNESIUM BLOOD (02/21/2023 12:37 AM EVENT REPRESENTATIVE) Magnesium 2.1 1.6 - 2.6 mg/dL 02/21/2023 2:05 AM [facility] Blood BLOOD SPECIMEN / Unknown Lab Venipuncture / Unknown 02/21/2023 12:37 AM EVENT REPRESENTATIVE 02/21/2023 1:37 AM EVENT REPRESENTATIVE [facility] LAB - CHEMISTRY ORDERABLES [facility] [address] [place] [address], [facility] [phone] * PROCALCITONIN LEVEL (02/21/2023 12:36 AM EVENT REPRESENTATIVE) [facility] PROCALCITONIN <0.02 <=0.10 ng/mL 02/21/2023 2:11 AM EVENT REPRESENTATIVE [facility] Blood BLOOD SPECIMEN / Unknown Lab Venipuncture / Unknown 02/21/2023 12:36 AM EVENT REPRESENTATIVE 02/21/2023 1:32 AM EVENT REPRESENTATIVE Narrative [facility] - 02/21/2023 2:11 AM EVENT REPRESENTATIVE The change in procalcitonin (PCT) concentration over time provides support in decision making on antibiotic discontinuation for suspected or confirmed septic patients. Follow-up samples should be tested once every 1-2 days based upon physician discretion taking into account the patient s evolution and progress. Consider discontinuation of antibiotic therapy if the PCT current is <= 0.5 ng/mL or if the delta PCT is > 80%. Duration of antibiotics should not be determined solely on PCT; established guidelines for the indication should be followed. PCT peak: Highest observed PCT concentration PCT current: Most recent PCT concentration Calculate delta PCT using the following equation: Delta PCT = PCT Peak PCT current X 100% PCT Peak The Change in Procalcitonin Calculator is available at [email or web address] If clinical picture has not improved and PCT remains high, reevaluate and consider treatment failure or other causes. Dianne King APRN-RECREATIONAL COUNSELOR LAB - CHEMISTRY ORDERABLES [place] [address] [place] [address], [facility] [phone] * (ABNORMAL) CBC W AUTO DIFFERENTIAL (02/20/2023 7:44 PM EVENT REPRESENTATIVE) [facility] WBC 6.8 4.0 - 10.7 x10E9/L 02/20/2023 8:03 PM EVENT REPRESENTATIVE [facility] RBC Count 4.39 3.90 - 5.20 x10E12/L 02/20/2023 8:03 PM [facility] Hemoglobin 13.4 11.9 - 15.8 g/dL 02/20/2023 8:03 PM [facility] Hematocrit 40.4 34.8 - 46.1 % 02/20/2023 8:03 PM [facility] MCV 92.0 80.0 - 98.0 fL 02/20/2023 8:03 PM [facility] MCH 30.5 26.7 - 33.6 pg 02/20/2023 8:03 PM [facility] MCHC 33.2 31.7 - 36.3 g/dL 02/20/2023 8:03 PM [facility] RDW-CV 13.2 11.3 - 14.8 % 02/20/2023 8:03 PM [facility] Platelet Count 173 150 - 420 x10E9/L 02/20/2023 8:03 PM [facility] MPV 11.7(H) 7.8 - 11.4 fL 02/20/2023 8:03 PM [facility] Neutrophil % 63.1 41.0 - 74.0 % 02/20/2023 8:03 PM [facility] Lymphocyte % 26.2 17.0 - 47.0 % 02/20/2023 8:03 PM [facility] Monocyte % 9.2 3.0 - 11.0 % 02/20/2023 8:03 PM [facility] Eosinophil % 1.3 0.0 - 7.0 % 02/20/2023 8:03 PM [facility] Basophil % 0.1 0.0 - 1.6 % 02/20/2023 8:03 PM [facility] Immature Granulocytes % 0.1 0.0 - 1.0 % 02/20/2023 8:03 PM [facility] Neutrophil Absolute 4.26 1.60 - 7.50 x10E9/L 02/20/2023 8:03 PM [facility] Lymphocyte Absolute 1.77 1.00 - 4.40 x10E9/L 02/20/2023 8:03 PM [facility] Monocyte Absolute 0.62 0.15 - 1.00 x10E9/L 02/20/2023 8:03 PM [facility] Eosinophil Absolute 0.09 0.00 - 0.60 x10E9/L 02/20/2023 8:03 PM [facility] Basophil Absolute 0.01 0.00 - 0.13 x10E9/L 02/20/2023 8:03 PM [facility] Blood BLOOD SPECIMEN / Unknown Venipuncture / Unknown 02/20/2023 7:44 PM EVENT REPRESENTATIVE 02/20/2023 7:56 PM EVENT REPRESENTATIVE Paulino Aguilar MD LAB - HEMATOLOGY ORD ERABLES [facility] [address] [place] [address], [facility] [phone] * (ABNORMAL) COMPREHENSIVE METABOLIC PANEL (02/20/2023 7:44 PM EVENT REPRESENTATIVE) BUN 17 7 - 26 mg/dL 02/20/2023 8:21 PM [facility] Creatinine 0.59 0.56 - 0.96 mg/dL 02/20/2023 8:21 PM [facility] Sodium 141 136 - 145 mmol/L 02/20/2023 8:21 PM [facility] Potassium 3.5 3.5 - 4.5 mmol/L 02/20/2023 8:21 PM [facility] Chloride 109(H) 98 - 107 mmol/L 02/20/2023 8:21 PM [facility] CO2 24 22 - 29 mmol/L 02/20/2023 8:21 PM [facility] Glucose 94 70 - 115 mg/dL 02/20/2023 8:21 PM [facility] Calcium 9.0 8.4 - 10.2 mg/dL 02/20/2023 8:21 PM [facility] Protein Total 7.3 6.0 - 8.3 g/dL 02/20/2023 8:21 PM [facility] Albumin 3.5 3.4 - 5.0 g/dL 02/20/2023 8:21 PM [facility] Bilirubin Total 0.2 0.2 - 1.2 mg/dL 02/20/2023 8:21 PM [facility] Alkaline Phosphatase 92 40 - 150 U/L 02/20/2023 8:21 PM [facility] ALT 18 5 - 55 U/L 02/20/2023 8:21 PM [facility] AST 16 5 - 34 U/L 02/20/2023 8:21 PM [facility] Anion Gap 8 6 - 16 02/20/2023 8:21 PM [facility] BUN/Creatinine Ratio 29(H) 7 - 23 02/20/2023 8:21 PM [facility] Osmolality Calculated 293 275 - 295 mOsm/kg 02/20/2023 8:21 PM [facility] Albumin/Globulin Ratio 0.9(L) 1.1 - 2.3 02/20/2023 8:21 PM [facility] eGFR by CKD-EPI >90 >=90 mL/min/1.7 3 m2 02/20/2023 8:21 PM [facility] Blood BLOOD SPECIMEN / Unknown Venipuncture / Unknown 02/20/2023 7:44 PM EVENT REPRESENTATIVE 02/20/2023 7:56 PM EVENT REPRESENTATIVE Paulino Aguilar MD LAB - CHEMISTRY [place] [facility] Organization Address City/State/ZIP Co de Phone Number [facility] [address] [place] [address], [facility] [phone] * CT FACIAL BONES WWO CONTRAST (02/20/2023 7:20 PM EVENT REPRESENTATIVE) Anatomical Region Laterality Modality Head Computed Tomogra phy 02/20/2023 7:29 PM EVENT REPRESENTATIVE Impressions 02/20/2023 7:52 PM EVENT REPRESENTATIVE IMPRESSION: 1.Findings compatible with left periorbital cellulitis. 2.Findings compatible with left scleritis, keratitis, and iritis. 3.No peripherally enhancing fluid collections to suggest darrell abscess formation. 4.No post septal involvement to suggest orbital cellulitis. 5.Paranasal sinus disease as outlined. > Interpreting Provider: Farrukh So MD on 02/20/2023 7:52 PM Narrative 02/20/2023 7:52 PM EVENT REPRESENTATIVE PROCEDURE: CT FACIAL BONES WWO CONTRAST, DATE/TIME OF EXAM: 02/20/2023 7:21 PM, LOCATION [facility] INDICATION: H05.012: Orbital cellulitis on left ADDITIONAL CLINICAL INFORMATION: Ordering Provider Reason For Exam: orbital cellulitis of left eye? Technologist Note: Does the patient have a history of renal insufficiency?->No Additional: 63 year oldfemaleas transfer from OSH for left red and pain eye. Symptoms of4 days hx of worseningitchy, watery, and injected left orbit. Patient symptoms also associated with an URI and sinusitis. She endorses sick contacts when watching her grandchildren who both had mucopurulent conjunctivitis last week. The patient has also begun to feel pain with extraocular movements but denies double vision, headaches, flashes or floaters. CT scan at OSH revealed periorbital cellulitis. She received 1 dose of IV vancomycin and 1 dose of IV ceftriaxone and ultimately transferred to [facility]. Per OSH report there was no subperiosteal abscess however no disc was sent with the patient. CONTRAST: IOPAMIDOL 76 % IV SOLN:100 mL EXAMINATION: Computed tomography (CT) of the maxillofacial bones, orbits, and paranasal sinuses with contrast TECHNIQUE: CT of the maxillofacial bones, orbits, and paranasal sinuses was performed following the uneventful administration of 100 mL Isovue-370 contrast according to standard protocol. COMPARISON: No prior study is available for comparison at the time of this dictation. FINDINGS: Mild soft tissue thickening and prominent enhancement involving the left periorbital soft tissues with evidence of thickening and enhancement of the anterior and bilateral sclera, and the cornea of the left eye globe, as well as mild thickening and enhancement of the the iris. Possible minimal enhancement of the left lacrimal gland. The left periorbital soft tissue swelling and enhancement extends along the medial canthus and the glabella and the forehead, inferiorly along the left cheek. No evidence of peripherally enhancing fluid collection to suggest darrell abscess formation. There is no evidence of post septal involvement. The right orbit appears grossly unremarkable. Moderate to severe circumferential mucosal thickening in the right maxillary sinus. Scattered opacification in the ethmoid air cells, left more than right. Frothy secretions in the middle right ethmoid air cells. Mild mucosal thickening in the remaining paranasal sinuses. The nasal septum is deviated to the left with a septal spur deforming the base of the left inferior turbinate. There is a sierra bullosa of the right middle turbinate base. Mucosal thickening adjacent to the right middle turbinate with mild hypertrophy. Mild hypertrophy of the right inferior turbinate. Artifacts from the dental amalgam limits evaluation of the oral cavity. Mild degenerative changes of the temporomandibular joints. The hard palate, mandible, and temporomandibular joints appear otherwise grossly unremarkable. No acute facial bone fractures are identified. The mastoid air cells are clear. No soft tissue abnormality is identified. Procedure Note Farrukh So MD - 02/20/2023 PROCEDURE: CT FACIAL BONES WWO CONTRAST, DATE/TIME OF EXAM: 47:21 PM, LOCATION [facility] INDICATION: H05.012: Orbital cellulitis on left ADDITIONAL CLINICAL INFORMATION: Ordering Provider Reason For Exam: orbital cellulitis of left eye? Technologist Note: Does the patient have a history of renal insufficiency?->No Additional: 63 year oldfemaleas transfer from OSH for left red and pain eye. Symptoms of4 days hx of worseningitchy, watery, and injected left orbit. Patient symptoms also associated with an URI and sinusitis. She endorses sick contacts when watching her grandchildren who both had mucopurulent conjunctivitis last week. The patient has also begun tofeel pain with extraocular movements but denies double vision, headaches, flashes or floaters. CT scan at OSH revealed periorbital cellulitis. She received 1 dose of IV vancomycin and 1 dose of IV ceftriaxone and ultimately transferred to [facility]. Per OSH report there was no subperiosteal abscess however no disc was sent with the patient. CONTRAST: IOPAMIDOL 76 % IV SOLN:100 mL EXAMINATION: Computed tomography (CT) of the maxillofacial bones,orbits, and paranasal sinuses with contrast TECHNIQUE: CT of the maxillofacial bones, orbits, and paranasal sinuseswas performed following the uneventful administration of 100 mL Isovue-370 contrast according to standard protocol. COMPARISON: No prior study is available for comparison at the time ofthis dictation. FINDINGS: Mild soft tissue thickening and prominent enhancement involving the left periorbital soft tissues with evidence of thickening and enhancement ofthe anterior and bilateral sclera, and the cornea of the left eye globe, as well as mild thickening and enhancement of the the iris. Possibleminimal enhancement of the left lacrimal gland. The left periorbital soft tissue swelling and enhancement extends along the medial canthus and theglabella and the forehead, inferiorly along the left cheek. No evidence of peripherally enhancing fluid collection to suggest darrell abscessformation. There is no evidence of post septal involvement. The right orbit appears grossly unremarkable. Moderate to severe circumferential mucosal thickening in the right maxillary sinus.Scattered opacification in the ethmoid air cells, left more than right. Frothy secretions in the middle right ethmoid air cells. Mild mucosalthickening in the remaining paranasal sinuses. The nasal septum is deviated to the left with a septal spur deforming the base of the left inferiorturbinate. There is a sierra bullosa of the right middle turbinate base. Mucosal thickening adjacent to the right middle turbinate with mild hypertrophy. Mild hypertrophy of the right inferior turbinate. Artifacts from thedental amalgam limits evaluation of the oral cavity. Mild degenerative changesof the temporomandibular joints. The hard palate, mandible, and temporomandibular joints appear otherwise grossly unremarkable. No acute facial bone fractures are identified. The mastoid air cells are clear.No soft tissue abnormality is identified. IMPRESSION: 1.Findings compatible with left periorbital cellulitis. 2.Findings compatible with left scleritis, keratitis, and iritis. 3.No peripherally enhancing fluid collections to suggest darrell abscess formation. 4.No post septal involvement to suggest orbital cellulitis. 5.Paranasal sinus disease as outlined. > Interpreting Provider: Farrukh So MD on 02/20/2023 7:52 PM [address]ilar MD CT ORDERABLES * DERMATOPATHOLOGY (05/23/2017 12:00 AM CDT) Case Report Dermatopathology Report Case: [id number] Authorizing Provider: Frandy Hendricks MD Collected: 05/23/2017 12:00 AM Pathologist: Abigail Morgan MD Received: 05/25/2017 06:06 AM Specimen: Skin, left shoulder 8 3:04 PM CDT DERMATOPATHOLOGY LABORATORY Final Diagnosis Specimen A. SKIN, left shoulder: BENIGN VERRUCOUS KERATOSIS, INFLAMED (L82.1) PRESENT AT MARGIN 3:04 PM T DERMATOPATHOLOGY LABORATORY Clinical History Changing lesion. Check margins. 3:04 PM CDT DERMATOPATHOLOGY LABORATORY Gross Description Specimen: A: Received is one formalin filled container labeled with the patient's name and designated left shoulder. The specimen consists of a shave biopsy measuring [id number]. The margin is inked green. The specimen is bisected and submitted in 1 cassette. Jar 0+. 3:04 PM T DERMATOPATHOLOGY LABORATORY Microscopic Description Specimen A. SKIN, left shoulder: Sections show hyperkeratosis, papillomatosis, hypergranulosis, and acanthosis. These histological findings can be seen in a verruca vulgaris or a seborrheic keratosis. Inflammatory cells are present within the dermis. The lesion is present at the margin of the specimen. 3:04 PM T DERMATOPATHOLOGY LABORATORY Disclaimer An external and internal positive and negative controls are appropriate for the histochemical, immunohistochemical and immunofluorescence stain(s) in this case (if any), except where stated explicitly. The performance characteristics of the stain(s) cited in this report were developed and its performance characteristic determined by the Dermatopathology Laboratory at [facility]. These tests need not be, and therefore are not, approved by the [place] Food and Drug Administration. The tests are used for clinical purposes. Billing Codes Specimen Charges Stain Charges 12826 1 3:04 PM CDT DERMATOPATHOLOGY LABORATORY Embedded Images 3:04 PM CDT DERMATOPATHOLOGY LABORATORY Pathology/Cytolog y TISSUE SPECIMEN FROM SKIN / Unknown 05/23/2017 05/25/2017 6:06 AM CDT Frandy Hendricks MD LAB - PATHOLOGY/CYTO LOGY ORDERABLES DERMATOPATHOLOGY LABORATORY [facility] - Department of Dermatology [address], [address] Lab [address] [phone] Care Teams Residential Property Manager Relationship Specialty Start Date End Date Frandy Hendricks MD [address] [place] [id number] PCP - General Family Medicine 02/21/23
--- OUTSIDE RECORDS SUMMARY | 2024-04-10 13:07 | XMS_ITS | CONTINUITY OF CARE DOCUMENT ---
Author Name tabby mcnair Address Unknown Organization [facility] Address [address] [place] [address] Phone [phone] Care Team Providers Care Plant Manager Name Role Phone Willard Ibrahim MD Unavailable RACHID LOMAX MD Unavailable [phone] RACHID LOMAX MD Unavailable INSURANCE PROVIDERS Payer name Policy type / Coverage type [place] red libertarian ID [facility] Other [id number]
--- OUTSIDE RECORDS SUMMARY | 2024-04-10 13:07 | XMS_ITS | Encounter Summary ---
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 Phone Unknown, Provider Primary Care Provider Frandy Perez MD Primary Care Provider [phone] Encounter Details Date Type Department Care Team (Late st Contact Info) Description 05/25/2017 Lab Requisition [facility] [address] [place] [address] Frandy Hendricks MD [address] [place] [id number] Social History Tobacco Use Types Packs/Day Years Used Date Smoking Tobacco: Never Assessed Sex and Gender Information Value Date Recorded Sex Assigned at Not on file Gender Identity Not on file Sexual Orientation Not on file documented as of this encounter Plan of Treatment Not on file documented as of this encounter Procedures Procedure Name Priority Date/Time Associated Diagnosis Comments DERMATOPATHOLOGY Routine 05/23/2017 12:0 0 AM CDT documented in this encounter Results * DERMATOPATHOLOGY (05/23/2017 12:00 AM CDT) Case Report Dermatopathology Report Case: [id number] Authorizing Provider: Frandy Hendricks MD Collected: 05/23/2017 12:00 AM Pathologist: Abigail Morgan MD Received: 05/25/2017 06:06 AM Specimen: Skin, left shoulder 8 3:04 PM CDT DERMATOPATHOLOGY LABORATORY Final Diagnosis Specimen A. SKIN, left shoulder: BENIGN VERRUCOUS KERATOSIS, INFLAMED (L82.1) PRESENT AT MARGIN 3:04 PM T DERMATOPATHOLOGY LABORATORY Clinical History Changing lesion. Check margins. 3:04 PM T DERMATOPATHOLOGY LABORATORY Gross Description Specimen: A: Received is one formalin filled container labeled with the patient's name and designated left shoulder. The specimen consists of a shave biopsy measuring [id number]. The margin is inked green. The specimen [...] characteristic determined by the Dermatopathology Laboratory at [facility]. These tests need not be, and therefore are not, approved by the [place] Food and Drug Administration. The tests are used for clinical purposes. Billing Codes Specimen Charges Stain Charges 17297 1 3:04 PM CDT DERMATOPATHOLOGY LABORATORY Embedded Images 3:04 PM CDT DERMATOPATHOLOGY LABORATORY Pathology/Cytolog y TISSUE SPECIMEN FROM SKIN / Unknown 05/23/2017 05/25/2017 6:06 AM CDT Frandy Hendricks MD LAB - PATHOLOGY/CYTO LOGY ORDERABLES DERMATOPATHOLOGY LABORATORY [facility] - Department of Dermatology [address] [place] [address], [address] Floor Lab [address] [phone] documented in this encounter Visit Diagnoses Not on filedocumented in this encounter Care Teams Gun Barrel Finisher Relationship Specialty Start Date End Date Unknown, Provider PCP - General 02/20/23 02/20/23 Frandy Hendricks MD [address] [place] [address] PCP - General Family Medicine 02/21/23 documented as of this encounter
== END 2024-04-10 11:03 | disposition home or self-care (01) ==
LOC: ANHIMG 11:04
PROVIDERS: PCP Obstetrics & Gynecology Gynecology; Visit Provider Nurse Practitioner
DX: Z13.820 Encounter for screening for osteoporosis (principal); Z78.0 Asymptomatic menopausal state
CPT/HCPCS: 77080